=== PATIENT | male | born 1995 | race Caucasian/White ===

== ENCOUNTER 2016-11-10 15:59 | Emergency (ER) | payer SELFPAY ==
[2016-11-10 16:06] VITALS: BP 114/75
[2016-11-10] MEDS ORDERED: OXYCODONE-ACETAMINOPHEN 5-325 MG TABLET PO ONE (19:24)
[2016-11-10] MEDS ORDERED: DOXYCYCLINE HYCLATE 100 MG TABLET PO ONE (19:24)
--- NOTE | 2016-11-10 19:25 | ER Document Report ---
HPI - HPI Patient complains to provider of: finger lac Onset: This afternoon Onset/Duration: Sudden Quality of pain: Achy Pain Level: 4 Context: Patient states that he was throwing a piece of glass that was covered in particles and whenever he threw the glass it sliced open his finger. Patient with laceration to right third fingertip. Patient's tetanus immunization is currently up-to-date. Patient states that he was in salt water at the time. Associated Symptoms: Other - Laceration Exacerbated by: Movement Relieved by: Denies Similar symptoms previously: No Recently seen / treated by doctor: No - ROS ROS below otherwise negative: Yes Systems Reviewed and Negative: Yes All other systems reviewed and negative - CONSTITUTIONAL Constitutional: DENIES: Fever - MUSCULOSKELETAL Musculoskeletal: REPORTS: Extremity pain - DERM Skin Color: Normal Skin Problems: Laceration Past Medical History - General Information source: Patient - Social History Smoking Status: Current Every Day Smoker Occupation: [employer] Lives with: Family Family History: Reviewed & Not Pertinent - Medical History Medical History: Negative Renal/ Medical History: Denies: Hx Peritoneal Dialysis Surgical Hx: Negative - Immunizations Hx Diphtheria, Pertussis, Tetanus Vaccination: Yes Vertical Provider Document - CONSTITUTIONAL Agree With Documented VS: Yes Exam Limitations: No Limitations General Appearance: WD/WN, No Apparent Distress - INFECTION CONTROL TRAVEL OUTSIDE OF THE [place] IN LAST 30 DAYS: No - HEENT HEENT: Atraumatic, Normocephalic - NECK Neck: Normal Inspection - RESPIRATORY Respiratory: No Respiratory Distress O2 Sat by Pulse Oximetry: 100 - CARDIOVASCULAR Pulses: Normal: Radial - BACK Back: Normal Inspection - MUSCULOSKELETAL/EXTREMETIES Musculoskeletal/Extremeties: MAEW, Tender - r 3rd finger, No Edema - NEURO Level of Consciousness: Awake, Alert, Appropriate Motor/Sensory: No Motor Deficit, No Sensory Deficit - DERM Integumentary: Warm, Dry, Laceration - lac to distal tip of right 3rd finger tip Course - Vital Signs Vital signs: Temp Pulse Resp BP Pulse Ox 98.4 F 82 20 114/75 100 11/10/16 16:03 11/10/16 16:03 11/10/16 16:03 11/10/16 16:03 11/10/16 16:03 - Diagnostic Test Radiology reviewed: Image reviewed Procedures - Immobilization Right 3rd digit Pre-Proc Neuro Vasc Exam: Normal Immobilizer type: Finger splint (Static) Performed by: PCT Post-Proc Neuro Vasc Exam: Normal Alignment checked and good: Yes - Laceration/Wound Repair Right 3rd digit Wound length (cm): 1.2 Wound's Depth, Shape: Flap Anesthetic type: 1% Lidocaine - digital block Wound explored: Clean, No foreign body removed Wound Repaired With: Sutures Suture Size/Type: 5:0, Nylon Number of Sutures: 3 Layer Closure?: No Post-procedure wound care: Sterile dressing applied, Splint applied Post-procedure NV exam normal: Yes Complications: No Discharge - Discharge Clinical Impression: Finger laceration Qualifiers: Encounter type: initial encounter Finger: middle finger Damage to nail status: without damage Foreign body presence: without foreign body Laterality: right Qualified Code(s): S61.212A - Laceration without foreign body of right middle finger without damage to nail, initial encounter Condition: Stable Disposition: HOME, SELF-CARE Instructions: Laceration Care ([facility]), Prophylactic Antibiotic ([facility]), Soap Cleansing ([facility]), Oral Narcotic Medication ([facility]) Additional Instructions: Return immediately for any new or worsening symptoms Followup with your primary care provider, call tomorrow to make a followup appointment Suture removal in 8 days Prescriptions: Cephalexin Monohydrate [Keflex 500 mg Capsule] 500 mg PO Q6H 5 Days Doxycycline Hyclate 100 mg PO BID #14 capsule Oxycodone HCl/Acetaminophen [Percocet 5-325 mg Tablet] 1 tab PO ASDIR PRN #12 tablet PRN Reason: Referrals: [facility] [Provider Group] - Follow up as needed
[2016-11-10] MEDS ORDERED: LIDOCAINE 1% INJ-PF (10 MG/ML) 30 ML SDV INJ ONE (20:29)
--- NOTE | 2016-11-10 20:29 | RADIOLOGY REPORT (SQ) ---
EXAM DESCRIPTION: FINGER RIGHT COMPLETED DATE/TIME: 11/10/2016 8:00 pm REASON FOR STUDY: cut on barnacles, finger lac COMPARISON: None. NUMBER OF VIEWS: Three views. TECHNIQUE: AP, lateral, and oblique images acquired of the right third finger. LIMITATIONS: None. FINDINGS: MINERALIZATION: Normal. BONES: No acute fracture or dislocation. No worrisome bone lesions. SOFT TISSUES: No soft tissue swelling. No foreign body. OTHER: No other significant finding. IMPRESSION: NO RADIOGRAPHIC EVIDENCE OF ACUTE INJURY. COMMENT: SITE OF TRAUMA/COMPLAINT MARKED/STAMP COMPLETED: YES. TECHNICAL DOCUMENTATION: JOB ID: [id number] [employer]- All Rights Reserved
[2016-11-10] MEDS ORDERED: LIDOCAINE 1% INJ-PF (10 MG/ML) 30 ML SDV ONE (20:33)
[2016-11-10] MEDS ORDERED: CEPHALEXIN 500 MG CAPSULE PO ONE (21:04)
== END 2016-11-10 21:25 | disposition home or self-care (01) ==
LOC: ER 15:59
PROC: 0HQFXZZ Repair Right Hand Skin, External Approach (ICD-10-PCS; principal; 2016-11-10)
DX: S61.212A Laceration without foreign body of right middle finger without damage to nail, initial encounter (principal); W25.XXXA Contact with sharp glass, initial encounter; F17.200 Nicotine dependence, unspecified, uncomplicated
CPT/HCPCS: 99283

== ENCOUNTER 2016-11-16 15:47 | Emergency (ER) | payer SELFPAY ==
--- NOTE | 2016-11-16 17:02 | RADIOLOGY REPORT (SQ) ---
EXAM DESCRIPTION: CT CERVICAL SPINE WITHOUT COMPLETED DATE/TIME: 11/16/2016 4:50 pm REASON FOR STUDY: fall on face, heard neck crack COMPARISON: 02/11/2007. TECHNIQUE: Axial images acquired through the cervical spine without intravenous contrast. Images re viewed with lung, soft tissue and bone windows. Reconstructed coronal and sagittal MPR images review ed. Images stored on PACS. All CT scanners at this facility use dose modulation, iterative reconstruction, and/or weight based d osing when appropriate to reduce radiation dose to as low as reasonably achievable (ALARA). [facility]: Dose Right [facility]: CareDose [facility]: Dose Right [facility]: Teradose 4D [facility]: [employer] RADIATION DOSE: Up-to-date CT equipment and radiation dose reduction techniques were employed. CTDIv ol: 18.4 mGy. DLP: 504 mGy-cm. mGy. LIMITATIONS: None. FINDINGS: ALIGNMENT: Anatomic. MINERALIZATION: Normal. VERTEBRAL BODIES: No fractures or dislocation. DISCS: No significant disc disease. FACETS, LATERAL MASSES, POSTERIOR ELEMENTS: Anatomic variant incomplete posterior arch of C1. No fra ctures. No dislocation. No acute findings. HARDWARE: None in the spine. VISUALIZED RIBS: No fractures. LUNG APICES AND SOFT TISSUES: No significant or acute findings. OTHER: No other significant finding. IMPRESSION: NO ACUTE OR SIGNIFICANT FINDINGS IN THE CERVICAL SPINE. TECHNICAL DOCUMENTATION: JOB ID: [id number] Quality ID # [id number]: Final reports with documentation of one or more dose reduction techniques (e.g., Au tomated exposure control, adjustment of the mA and/or kV according to patient size, use of iterative reconstruction technique) 2010 [employer]- All Rights Reserved
--- NOTE | 2016-11-16 17:02 | RADIOLOGY REPORT (SQ) ---
EXAM DESCRIPTION: CT HEAD WITHOUT COMPLETED DATE/TIME: 11/16/2016 4:46 pm REASON FOR STUDY: fall on face, heard neck crack COMPARISON: 02/11/2007. TECHNIQUE: Axial images acquired through the brain without intravenous contrast. Images reviewed wi th bone, brain and subdural windows. Images stored on PACS. All CT scanners at this facility use dose modulation, iterative reconstruction, and/or weight based d osing when appropriate to reduce radiation dose to as low as reasonably achievable (ALARA). [facility]: Dose Right [facility]: CareDose [facility]: Dose Right [facility]: Teradose 4D [facility]: [employer] RADIATION DOSE: Up-to-date CT equipment and radiation dose reduction techniques were employed. CTDIv ol: 49.0 mGy. DLP: 783 mGy-cm. mGy. LIMITATIONS: None. FINDINGS: VENTRICLES: Normal size and contour. CEREBRUM: No masses. No hemorrhage. No midline shift. Normal pathak/white matter differentiation. N o evidence for acute infarction. CEREBELLUM: No masses. No hemorrhage. No alteration of density. No evidence for acute infarction. EXTRAAXIAL SPACES: No fluid collections. No masses. ORBITS AND GLOBE: No intra- or extraconal masses. Normal contour of globe without masses. CALVARIUM: No fracture. PARANASAL SINUSES: No fluid or mucosal thickening. SOFT TISSUES: No mass or hematoma. OTHER: No other significant finding. IMPRESSION: NORMAL BRAIN CT WITHOUT CONTRAST. TECHNICAL DOCUMENTATION: JOB ID: [id number] Quality ID # [id number]: Final reports with documentation of one or more dose reduction techniques (e.g., Au tomated exposure control, adjustment of the mA and/or kV according to patient size, use of iterative reconstruction technique) 2010 [employer]- All Rights Reserved
[2016-11-16] MEDS ORDERED: CYCLOBENZAPRINE HCL 10 MG TABLET PO ONE (17:09)
[2016-11-16] MEDS ORDERED: OXYCODONE-ACETAMINOPHEN 5-325 MG TABLET PO ONE (17:09)
[2016-11-16] MEDS ORDERED: DIPHENHYDRAMINE HCL 25 MG CAPSULE PO ONE (17:10)
--- NOTE | 2016-11-16 17:45 | ER Document Report ---
ED Fall - General Chief Complaint: Neck Problem Stated Complaint: FALL/NECK AND SHOULDER PAIN Time Seen by Provider: 11/16/16 16:22 Notes: Patient is a 21-year-old male presents emergency department after a fall [place]ampoline park. Patient states that he was doing a back flip when he landed on his face. Admits to LOC less than 15 minutes with associated dizziness, nausea. Patient also admits to left-sided neck pain. Patient states he heard a crack in his neck when he fell. Patient states that he was able to ambulate and drive to his mom's house and symptoms and care. Patient denies any urinary/ stool incontinence, saddle anesthesia. Denies any numbness or tingling in his upper or lower extremities. Patient able to ambulate without difficulty. TRAVEL OUTSIDE OF THE [place] IN LAST 30 DAYS: No - Related data Allergies/Adverse Reactions: hydrocodone Adverse Reaction (Verified 11/16/16 16:10) Past Medical History - Social History Smoking Status: Current Every Day Smoker Chew tobacco use (# tins/day): No Frequency of alcohol use: Occasional Drug Abuse: Marijuana Family History: Reviewed & Not Pertinent Patient has suicidal ideation: No Patient has homicidal ideation: No Renal/ Medical History: Denies: Hx Peritoneal Dialysis - Immunizations Hx Diphtheria, Pertussis, Tetanus Vaccination: Yes - 1 year ago Review of Systems - Review of Systems Constitutional: No symptoms reported Musculoskeletal: See HPI Neurological/Psychological: See HPI -: Yes All other systems reviewed and negative Physical Exam - Vital signs Vitals: Temp Pulse Resp BP Pulse Ox 98.5 F 97 18 118/70 98 11/16/16 16:08 11/16/16 16:08 11/16/16 16:08 11/16/16 16:08 11/16/16 16:08 - HEENT Head: Normocephalic. No: Abrasions, Romero's sign, Ecchymosis, Open wounds, Racoon's eyes, Tenderness Eyes: Normal Conjunctiva: Normal Cornea: Normal Extraocular movements intact: Yes Eyelashes: Normal Pupils: PERRL Ears: Normal. No: Pinna laceration, Pinna tenderness, Tragus laceration External canal: Normal. No: Blood in canal Tympanic membrane: Normal Sinus: Normal. No: Tenderness Nasal: Normal. No: Bloody discharge, Anirudh deformity, Ecchymosis, Epistaxis, Septal hematoma Mouth/Lips: Normal. No: Dental fracture Mucous membranes: Normal Pharynx: Normal. No: Blood in hypopharynx, Peritonsillar abscess, Retropharyngeal abscess, Potential airway comprom. Neck: Normal - Respiratory Respiratory status: No respiratory distress Chest status: Nontender Breath sounds: Normal Chest palpation: Normal - Cardiovascular Rhythm: Regular Heart sounds: Normal auscultation, S1 appreciated, S2 appreciated Murmur: No Pulses: Normal: Radial, Dorsalis pedis Normal capillary refill: Yes - Back Back: Tender - along c spine in c collar other brown thoracic and lumbar spine nontender. paraspinous muscle tenderness along cervial spine worse on the left along left trapezius. No: Deformity/step-off, CVA tenderness, Vertebra tenderness, Scars, Scoliosis, Wounds - Extremities General upper extremity: Normal inspection, Nontender, Normal color, Normal ROM , Normal strength, Normal temperature General lower extremity: Normal inspection, Nontender, Normal color, Normal ROM , Normal strength, Normal temperature, Normal weight bearing - Neurological Neuro grossly intact: Yes Cognition: Normal Orientation: AAOx4 Karlos Coma Scale Eye Opening: Spontaneous [place] Coma Scale Verbal: Oriented [place] Coma Scale Motor: Obeys Commands Karlos Coma Scale Total: 15 Speech: Normal Cranial nerves: Normal Cerebellar coordination: Normal Motor strength normal: LUE, RUE, LLE, RLE Additional motor exam normals: Equal tortilla maker Sensory: Normal - Skin Skin Temperature: Warm Skin Moisture: Dry Skin Color: Normal Skin Turgor: Elastic Skin irregularity: Laceration - above right eyebrow involving dermis with dried blood Course - Re-evaluation Re-evalutation: 11/16/16 21:15 Patient is a 20-year-old male who is hemodynamic stable, no acute distress without any evidence of acute hemorrhage, skull fracture, cervical spinous fracture. C-spine cleared the bedside. Patient medicated with improvement in his pain. Patient able to ambulate without any difficulty. Patient stable for discharge home. Patient educated on signs and symptoms to return to emergency department. - Vital Signs Vital signs: Temp Pulse Resp BP Pulse Ox 97.4 F 68 16 115/67 99 11/16/16 18:24 11/16/16 18:24 11/16/16 18:24 11/16/16 18:24 11/16/16 18:24 - Diagnostic Test Radiology reviewed: Image reviewed, Reports reviewed Discharge - Discharge Clinical Impression: Cervical strain Qualifiers: Encounter type: initial encounter Qualified Code(s): S16.1XXA - Strain of muscle, fascia and tendon at neck level, initial encounter Condition: Good Disposition: HOME, SELF-CARE Additional Instructions: HEAD INJURY PRECAUTIONS: At this point, there is no evidence that your head injury is serious. Observation is necessary, however. Take only clear liquids for the first few hours, unless told otherwise by the doctor. If no pain medication was prescribed, you may take acetaminophen according to the directions on the bottle. Do not take any medication that may alter your level of alertness (unless you've discussed it with the doctor first) . Limit activity for the first 24 hours. Bed rest is best. During the first 24 hours, check to see approximately every two to three hours that the patient is easily arousable, responds normally, and can perform common tasks such as walking without difficulty. Contact your doctor or go to the hospital if any of the following things occur: Persistent vomiting, difficulty in arousing the patient, worsening or continued headache, or failure to improve as expected. Head injuries can cause symptoms that persist for a few days or even a few weeks. NECK INJURY (CERVICAL STRAIN): You have a neck strain. This is an injury to the muscles and ligaments in the neck. There is no evidence of a fracture of the neck bones. Also, no injury to the spinal cord or nerve roots was detected. Usually, stiffness and pain INCREASE for the first 24-48 hours after the injury. The pain will gradually resolve and the neck will become more mobile. Most patients are back at work or school within a few days. Typically, complete healing takes about two or three weeks. The usual initial treatment is rest and cold packs. A neck collar may be placed to keep the muscles of the neck at rest. Antiinflammatory and muscle relaxing medication are often used to reduce the spasm and irritation. You should call the doctor, or go to the hospital, if you develop numbness or weakness in any extremity, problems with your bladder or bowel, or pain radiating down the arms. MUSCLE STRAIN: You have strained a muscle -- torn the fibers within the muscle. This often occurs with strenuous exertion, or during an injury that suddenly stretches the muscle. The seriousness of a strain varies. Some strains heal within days, others cause problems for months. X-rays cannot show a muscle strain. X-rays are taken only if symptoms suggest that a fracture could be present. The usual treatment of a muscle strain is rest and ice packs. Sometimes, a sling, splint, or crutches may be necessary to rest the muscle. The muscle can be used again once pain subsides. Severe strains require a special exercise and stretching program to prevent permanent stiffness and disability. Your doctor will advise you if this will be necessary. Call the doctor immediately if pain or swelling becomes severe, or if numbness or discoloration develop. ICE PACKS: Apply ice packs frequently against the painful area. Many different schedules are recommended, such as "20 minutes on, 20 minutes off" or "one hour ice, two hours rest." If you need to work, you may need to go longer between ice treatments. You should plan to have the area ice packed AT LEAST one fourth of the time. The ice should be applied over the wrap, tape, or splint, or over a layer of cloth -- not directly against the skin. Some ice bags have a built-in cloth and can be put directly on the skin. WARM PACKS: After approximately two days, apply gentle heat (such as a heating pad or hot water bottle) for about 20 to 30 minutes about every two hours -- at least four times daily. Warmth and elevation will help you make a more rapid recovery , and will ease the pain considerably. Do not use HOT heat, and never apply heat for longer than 30 minutes. The continuous heat can invisibly damage skin and muscles -- even when no burn is seen on the surface. Damaged muscles can make you MORE sore. MUSCLE RELAXERS: Muscle relaxing medications are usually prescribed for acute muscle spasm or injury to the neck and back. They are often combined with antiinflammatory pain medication for increased relief. You may stop the muscle relaxer when the pain and stiffness have improved. Start the medication again if spasms recur. Muscle relaxers may cause drowsiness, especially with the first dose. Do not operate machinery or drive while under the effects of the medication. Most muscle relaxers last up to 24 hours. Do not combine the medication with alcohol. FOLLOW-UP CARE: If you have been referred to a physician for follow-up care, call the physician s office for an appointment as you were instructed or within the next two days. If you experience worsening or a significant change in your symptoms, notify the physician immediately or return to the Emergency Department at any time for re-evaluation. Prescriptions: Cyclobenzaprine HCl [Flexeril 10 mg Tablet] 10 mg PO TIDP PRN #15 tab PRN Reason: Ibuprofen [Motrin 800 mg Tablet] 800 mg PO Q8H PRN #30 tab PRN Reason:
[2016-11-16 18:25] VITALS: BP 115/67
== END 2016-11-16 18:24 | disposition home or self-care (01) ==
LOC: ER 15:47
DX: S16.1XXA Strain of muscle, fascia and tendon at neck level, initial encounter (principal); S01.81XA Laceration without foreign body of other part of head, initial encounter; W17.89XA Other fall from one level to another, initial encounter; Y93.44 Activity, trampolining; Y92.39 Other specified sports and athletic area as the place of occurrence of the external cause; R55 Syncope and collapse; R42 Dizziness and giddiness; R11.0 Nausea; M54.2 Cervicalgia; F17.200 Nicotine dependence, unspecified, uncomplicated
CPT/HCPCS: 99284; 70450; 72125; L0120

== ENCOUNTER 2018-03-18 19:32 | Emergency (ER) | payer SELFPAY ==
[2018-03-18 19:43] VITALS: BP 121/72
[2018-03-18] MEDS ORDERED: IBUPROFEN 600 MG TABLET PO ONE (21:40)
[2018-03-18] MEDS ORDERED: ACETAMINOPHEN 325 MG TABLET PO ONE (21:40)
--- NOTE | 2018-03-18 21:44 | ER Document Report ---
ED General - General Chief Complaint: Arm Pain Stated Complaint: ARM PAIN Time Seen by Provider: 03/18/18 21:29 Notes: Patient is a 22-year-old male who presents to the emergency department with left forearm pain. 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 He states he has been having this pain for the past week and a half, but was unable to come to have his arm checked. He does have some some numbness to the area. When he moves his arm he feels "popping" sensation. When he does not move his arm he is not in pain. TRAVEL OUTSIDE OF THE [place] IN LAST 30 DAYS: No - Related Data Allergies/Adverse Reactions: hydrocodone Adverse Reaction (Verified 11/16/16 16:10) Past Medical History - General Information source: Patient - Social History Smoking Status: Current Every Day Smoker Chew tobacco use (# tins/day): No Frequency of alcohol use: None Drug Abuse: None Family History: Reviewed & Not Pertinent Patient has suicidal ideation: No Patient has homicidal ideation: No Renal/ Medical History: Denies: Hx Peritoneal Dialysis Past Surgical History: Reports: Hx Tonsillectomy - Immunizations Hx Diphtheria, Pertussis, Tetanus Vaccination: Yes Review of Systems - Review of Systems Notes: REVIEW OF SYSTEMS: CONSTITUTIONAL : Denies recent illness. Denies recent unintentional weight loss. Denies fever, chills, or sweats. EENT: Denies eye, ear, throat, or mouth pain, discharge, or symptoms. Denies nasal or sinus congestion. CARDIOVASCULAR: Denies chest pain. RESPIRATORY: Denies shortness of breath, cough, congestion, difficulty breathing , or wheezing. GASTROINTESTINAL: Denies nausea, vomiting, and diarrhea. Denies abdominal pain. Denies constipation. GENITOURINARY: Denies difficulty urinating, burning, blood in urine, urgency or frequency. MUSCULOSKELETAL: See HPI SKIN: Denies rash, itchiness, or lesions HEMATOLOGIC : Denies easy bruising or bleeding. LYMPHATIC: Denies swollen, painful, enlarged glands. NEUROLOGICAL: Denies no numbness or tingling denies weakness. Denies headache. Denies altered mental status. Denies alteration in speech. PSYCHIATRIC: Denies stress, anxiety, alteration in sleep patterns, or depression. All other systems reviewed and negative. Physical Exam - Vital signs Vitals: Temp Pulse Resp BP Pulse Ox 97.7 F 88 16 121/72 100 03/18/18 19:41 03/18/18 19:41 03/18/18 19:41 03/18/18 19:41 03/18/18 19:41 - Notes Notes: PHYSICAL EXAMINATION: GENERAL: Appears well, healthy, well-nourished, no acute distress. HEAD: Normocephalic, atraumatic. EYES: PERRL, conjunctiva normal, all extraocular movements intact, sclera nonicteric ENT: Moist mucous membranes. NECK: Supple, no noticeable swelling, redness, rash. Normal range of motion. LUNGS: Equal breath sounds bilaterally and clear to auscultation. No wheezes rales or rhonchi. CARDIOVASCULAR: S1-S2, regular rate, regular rhythm. Radial pulses 2+, normal. ABDOMEN: Normoactive bowel sounds. Soft, nontender, no guarding, no rebound tenderness, and no masses palpated. EXTREMITIES: Normal strength and range of motion, no pitting or edema. No cyanosis. NEUROLOGICAL: Moves all extremities upon command. Strength 5/5 in all extremities. Mild crepitus noted to radius area when patient hyperextended his wrist. PSYCH: Normal mood, normal affect. SKIN: Warm, dry. No rash, lesions, ulcerations noted. Normal skin turgor. Course - Re-evaluation Re-evalutation: Patient's exam is most consistent with tendinitis. I do not suspect patient has a fracture or ruptured tendon. He will be sent home with a cockup splint with Motrin and Tylenol for pain control. Return precautions were given, discharge instructions were given, and patient verbalized understanding. He is stable for discharge. - Vital Signs Vital signs: Temp Pulse Resp BP Pulse Ox 97.7 F 88 16 121/72 100 03/18/18 19:41 03/18/18 19:41 03/18/18 19:41 03/18/18 19:41 03/18/18 19:41 Procedures - Immobilization Left Wrist Pre-Proc Neuro Vasc Exam: Normal Immobilizer type: Cock-up Performed by: RN Post-Proc Neuro Vasc Exam: Unchanged from pre-exam Alignment checked and good: Yes Discharge - Discharge Clinical Impression: Left arm pain Condition: Stable Disposition: HOME, SELF-CARE Additional Instructions: You have been seen in the emergency department for left arm pain. The most likely cause of your left arm pain is something called tendinitis. Please rest the area as much as he can. You have been provided with a splint to help limit movement. You can take ibuprofen 600 mg and Tylenol 1000 mg every 6 hours as needed for the pain. Take those medications together and make sure you eat when you take them. Please follow-up with your primary care provider in regards to this issue. If you are unable to move your arm in any point, develop a fever greater than 100.4 F, or have any symptoms that are worrisome to you please return to the emergency department. Forms: Special Work Note
== END 2018-03-18 22:00 | disposition home or self-care (01) ==
LOC: ER 19:32
DX: M79.632 Pain in left forearm (principal); X50.0XXA Overexertion from strenuous movement or load, initial encounter; Y99.0 Civilian activity done for income or pay; R20.0 Anesthesia of skin; F17.200 Nicotine dependence, unspecified, uncomplicated
CPT/HCPCS: 99283; L3908

== ENCOUNTER 2018-06-03 19:08 | Emergency (ER) | payer SELFPAY ==
[2018-06-03 19:19] VITALS: BP 123/69
[2018-06-03] MEDS ORDERED: ACETAMINOPHEN 325 MG TABLET PO ONE (20:08)
[2018-06-03] MEDS ORDERED: IPRATROPIUM/ALBUTEROL 0.5-2.5 MG/3 ML AMPUL NEB ONE (20:10)
--- NOTE | 2018-06-03 20:10 | ER Document Report ---
HPI - HPI Time Seen by Provider: 06/03/18 20:02 Pain Level: 4 Notes: Patient is a 23-year-old male who presents to the ED complaining of nasal congestion/discharge, dry nonproductive cough, fever, body ache 4d. Patient states that he is still eating and drinking without difficulties, but does have a decreased p.o. intake. He is still urinating normally having normal bowel movements. Patient has been using some [id number] meds for symptoms. He denies any significant past medical history including cardiopulmonary history and immunocompromised conditions. Patient denies any IV drug use. Denies any current headache, neck pain, sore throat, chest pain, palpitations, syncope, shortness of breath, wheeze, dyspnea, abdominal pain, nausea/vomiting/diarrhea, urinary retention, dysuria, hematuria, or rash. - ROS Systems Reviewed and Negative: Yes All other systems reviewed and negative Past Medical History - Social History Smoking Status: Smoker,Current Status Unk Family History: Reviewed & Not Pertinent Renal/ Medical History: Denies: Hx Peritoneal Dialysis Past Surgical History: Reports: Hx Tonsillectomy - Immunizations Hx Diphtheria, Pertussis, Tetanus Vaccination: Yes Vertical Provider Document - CONSTITUTIONAL Agree With Documented VS: Yes Notes: PHYSICAL EXAMINATION: GENERAL: Well-appearing, well-nourished and in no acute distress. A&Ox4. Answers questions appropriately. Moves comfortably w/o notable distress HEAD: Atraumatic, normocephalic. EYES: Pupils equal round and reactive to light, extraocular movements intact, sclera anicteric, conjunctiva are normal. ENT: EAC clear b/l. TM's intact b/l without erythema, fluid, or perforation. Nares patent and with clear discharge. oropharynx no erythema without exudates. No tonsilar hypertrophy without erythema or exudate. No palatine shift. Uvula midline. No tongue protrusion. No drooling, hoarseness, or airway compromise. Moist mucous membranes. No sinus tenderness. NECK: Normal range of motion, supple without lymphadenopathy. No rigidity/meningismus. LUNGS: Breath sounds clear to auscultation bilaterally and equal. No wheezes rales or rhonchi. No retractions HEART: Regular rate and rhythm without murmurs, rubs, gallops. ABDOMEN: Soft, nontender, nondistended abdomen. No guarding, no rebound. Normal bowel sounds present. No CVA tenderness bilaterally. NEUROLOGICAL: Normal speech, normal gait. PSYCH: Normal mood, normal affect. SKIN: Warm, Dry, normal turgor, no rashes or lesions noted. - INFECTION CONTROL TRAVEL OUTSIDE OF THE [place] IN LAST 30 DAYS: No Course - Re-evaluation Re-evalutation: 06/03/18 20:42 Patient is an afebrile, well-hydrated, 23-year-old male who presents to the ED with acute URI, suspect influenza. Vitals are acceptable. PE is otherwise unremarkable. CXR unremarkable. No other labs or imaging warranted at this time based on H&P. Patient has no significant cardiopulmonary or immunocompromised medical conditions. Patient's lungs are clear to auscultation bilaterally without tachycardia, hypoxia, or tachypnea. Patient is tolerating p.o. without any difficulties. Pt beyond treatment window with tamiflu. Low suspicion for any meningitis, sepsis, peritonsillar/pharyngeal abscess, resp iratory compromise, severe dehydration, or other emergent systemic condition at this time. Patient is aware this condition can change from initial presentation and he needs to monitor symptoms closely. Conservative measures otherwise for symptoms. Recheck with your PCM in 3-5 days. Return to the ED with any worsening/concerning symptoms otherwise as reviewed in discharge. Patient is in agreement. - Vital Signs Vital signs: Temp Pulse Resp BP Pulse Ox 99.7 F 117 H 22 H 123/69 99 06/03/18 19:17 06/03/18 19:17 06/03/18 19:17 06/03/18 19:17 06/03/18 19:17 Discharge - Discharge Clinical Impression: Acute URI Condition: Stable Disposition: HOME, SELF-CARE Instructions: Upper Respiratory Illness ([facility]) Additional Instructions: Maintain adequate fluid intake tylenol/ibuprofen as needed alternating every 3 hours for fever/body ache over the counter cold medication as needed for symptoms Humidified air may help Wash your hands regularly Wear a mask when coughing F/u: with your PCM in 3-5 days for a recheck Return to the ED with any fever, worsening pain, chest pain, palpitations, syncope, worsening MORA, neck pain/stiffness, shortness of breath, wheezing, drooling, trouble swallowing/breathing, abdominal pain, n/v/d, rash, or worsening/concerning symptoms otherwise. Prescriptions: Benzonatate [Tessalon Perle 100 mg Capsule] 100 mg PO Q8HP PRN #15 cap PRN Reason: Albuterol Sulfate [Proair HFA Inhalation Aerosol 8.5 gm MDI] 2 puff IH Q4H PRN #1 mdi PRN Reason: Forms: Return to Work Referrals: [facility] [Provider Group] - Follow up as needed [facility] [Provider Group] - Follow up as needed
--- NOTE | 2018-06-03 20:35 | RADIOLOGY REPORT (SQ) ---
XR CHEST 2 VIEWS HISTORY: cough, fever. COMPARISON: None. FINDINGS: The heart size is normal. The lungs are clear. No pleural effusions or pneumothorax is seen. No acute bony findings. IMPRESSION: No evidence of acute cardiopulmonary disease.
== END 2018-06-03 20:56 | disposition home or self-care (01) ==
LOC: ER 19:08
DX: J06.9 Acute upper respiratory infection, unspecified (principal); R09.81 Nasal congestion; R09.89 Other specified symptoms and signs involving the circulatory and respiratory systems; R05 Cough; R50.9 Fever, unspecified; M79.10 Myalgia, unspecified site; R63.0 Anorexia; F17.200 Nicotine dependence, unspecified, uncomplicated
CPT/HCPCS: 94640; 99283; 71046; J7620

== ENCOUNTER 2019-02-17 23:33 | Emergency (ER) | payer MEDICAID ==
[2019-02-18] MEDS ORDERED: IBUPROFEN 600 MG TABLET PO PRN (00:02)
[2019-02-18] MEDS ORDERED: ACETAMINOPHEN 325 MG TABLET PO ONE (00:05)
[2019-02-18] MEDS ORDERED: IBUPROFEN 600 MG TABLET PO ONE (00:05)
[2019-02-18] MEDS ORDERED: RINGERS LACTATED IV ONE (00:05)
[2019-02-18 00:34] LABS: ABSOLUTE EOSINOPHILS # (AUTO) 0.2 10^3/uL (0.0-0.6); ABSOLUTE LYMPHOCYTES (AUTO) 2.7 10^3/uL (0.5-4.7); ABSOLUTE MONOCYTES (AUTO) 0.5 10^3/uL (0.1-1.4); ABSOLUTE NEUT (AUTO) 5.5 10^3/uL (1.7-8.2); BASOPHILS % (AUTO) 0.5 % (0-2); EOSINOPHILS % (AUTO) 2.1 % (0-6); HEMATOCRIT 36.7 % (37.9-51.0); HEMOGLOBIN 12.3 g/dL (13.5-17.0); LYMPHOCYTES % (AUTO) 30.5 % (13-45); MEAN CORPUSCULAR HEMOGLOBIN 28.5 pg (27.0-33.4); MEAN CORPUSCULAR HGB CONC 33.6 g/dL (32.0-36.0); MEAN CORPUSCULAR VOLUME 85 fl (80-97); MONOCYTES % (AUTO) 5.6 % (3-13); PLATELET COUNT 251 10^3/uL (150-450); RED BLOOD COUNT 4.32 10^6/uL (4.35-5.55); RED CELL DISTRIBUTION WIDTH 14.1 % (11.5-14.0); SEGMENTED NEUTROPHILS % (AUTO) 61.3 % (42-78); TOTAL CELLS COUNTED % (AUTO) 100 %
[2019-02-18 00:35] LABS: VENOUS BLOOD BASE EXCESS 0.4 mmol/L; VENOUS BLOOD HCO3 24.9 mmol/L (20-32); VENOUS BLOOD PCO2 39.8 mmHg (35-63); VENOUS BLOOD PH 7.41 (7.30-7.42)
[2019-02-18 00:40] LABS: PROTHROMBIN TIME 13.2 SEC (11.4-15.4)
[2019-02-18 01:00] LABS: ALBUMIN 3.8 g/dL (3.5-5.0); ALKALINE PHOSPHATASE 107 U/L (38-126); ANION GAP 11 (5-19); ASPARTATE AMINO TRANSFERASE 29 U/L (17-59); BILIRUBIN,DIRECT 0.3 mg/dL (0.0-0.4); BILIRUBIN,TOTAL 0.4 mg/dL (0.2-1.3); BLOOD UREA NITROGEN 12 mg/dL (7-20); CALCIUM 9.2 mg/dL (8.4-10.2); CARBON DIOXIDE 25 mmol/L (22-30); CHLORIDE 104 mmol/L (98-107); GLUCOSE 105 mg/dL (75-110); POTASSIUM 4.1 mmol/L (3.6-5.0)
--- NOTE | 2019-02-18 01:22 | ER Document Report ---
ED General - General Chief Complaint: Fever Stated Complaint: FEVER,NAUSEA,HEADACHE Time Seen by Provider: 02/18/19 01:06 Primary Care Provider: WANDY VIZCARRA PA [Primary Care Provider] - Follow up as needed TRAVEL OUTSIDE OF THE U.[place]. IN LAST 30 DAYS: No - HPI Notes: Patient is a 23-year-old male presents emergency department for evaluation of cough, fever, difficulty breathing. He states symptoms have been present for about 10 days. He states he was feeling fever, congestion, and cough, started about 10 days ago. He states his symptoms got better then got worse again. His fevers were for a few days then returned after 3 or 4 days. He denies any pain of any sort, other than generalized body aches. He has had no vomiting. Thus far fevers been responsive to Tylenol and ibuprofen. After some time, patient's family came out to talk to me. They state that he told him he has a history of testicular cancer. He was being treated in [place]. I confronted the patient about this. He states he was diagnosed with testicular cancer, was on chemotherapy. He was told it was "almost gone" and then stopped receiving any sort of treatment. He states he has noted testicular scrotal pain at this time. - Related Data Allergies/Adverse Reactions: hydrocodone Adverse Reaction (Verified 11/16/16 16:10) Home Medications: Suboxone Past Medical History - General Information source: Patient - Social History Smoking Status: Current Every Day Smoker Chew tobacco use (# tins/day): No Frequency of alcohol use: None Drug Abuse: Heroin - Last injected heroin 1 to 2 months ago Family History: Reviewed & Not Pertinent Patient has suicidal ideation: No Patient has homicidal ideation: No Renal/ Medical History: Denies: Hx Peritoneal Dialysis Malignancy Medical History: Reports Hx Testicular Cancer Past Surgical History: Reports: Hx Tonsillectomy - Immunizations Hx Diphtheria, Pertussis, Tetanus Vaccination: Yes Review of Systems - Review of Systems Constitutional: See HPI EENT: See HPI Cardiovascular: No symptoms reported Respiratory: See HPI Gastrointestinal: No symptoms reported Genitourinary: No symptoms reported Musculoskeletal: No symptoms reported Skin: No symptoms reported Neurological/Psychological: No symptoms reported Physical Exam - Vital signs Vitals: Temp Pulse Resp BP Pulse Ox 101.3 F H 129 H 23 H 90/75 L 97 02/18/19 00:00 02/18/19 00:00 02/18/19 00:00 02/18/19 00:00 02/18/19 00:00 - Notes Notes: This is a 23-year-old male who appears stated age, no acute distress. He is sitting upright in the bed, cooperative with examiner. Vital signs reviewed, please refer to chart. Head is normocephalic, atraumatic. Pupils equal round, reactive to light. Mucosa is moist. Pharynx is without erythema or exudate. Neck is supple without meningismus. Heart is regular rate and rhythm. Lungs reveal harsh breath sounds but no wheezes, rales, rhonchi. Abdomen is soft, nontender, normoactive bowel sounds throughout. Extremities without cyanosis, clubbing. Posterior calves are nontender. Peripheral pulses are equal. Skin is warm and dry. Patient is awake, alert, neurological exam is nonfocal. Course - Re-evaluation Re-evalutation: 02/18/19 03:28 Presents emergency department for evaluation. He has had intermittent fevers for over a week. It seems as if his symptoms improved and then worsened again. Laboratory investigations were obtained, patient was given IV fluids, antipyretics. Because of his history of IV drug abuse and newly reported history of testicular cancer, CT angiogram of the chest was ordered as well. CTA findings are most consistent with left lower lobe and lingular pneumonia. Patient is given Levaquin. He had no vomiting. He is feeling significantly improved. He is not hypoxic. His heart rate is in the 80s. I will send him home with a prescription for Levaquin and close follow-up. She is to return to the ED with worsening or new concerning symptoms. He is urged in no uncertain terms to please follow-up with oncology in [place] in regards to his testicular cancer. - Vital Signs Vital signs: Temp Pulse Resp BP Pulse Ox 98.8 F 129 H 14 103/55 L 98 02/18/19 02:53 02/18/19 00:00 02/18/19 02:53 02/18/19 02:53 02/18/19 02:53 - Laboratory Result Diagrams: 02/18/19 00:15 02/18/19 00:15 Laboratory results interpreted by me: 02/18/19 00:15 RBC 4.32 L Hgb 12.3 L Hct 36.7 L RDW 14.1 H - Diagnostic Test Radiology reviewed: Image reviewed, Reports reviewed Radiology results interpreted by me: 02/18/19 03:27 Chest X-Ray 02/18/19 00:05 IMPRESSION: Negative chest copyright 2011 [employer]- All Rights Reserved Chest/Abdomen CTA 02/18/19 01:37 IMPRESSION: No aortic dissection or aneurysm. No pulmonary embolus. Probable left lower lobe and lingular pneumonia. - EKG Interpretation by Me Additional EKG results interpreted by me: 02/18/19 03:27 Sinus tachycardia with a rate of 107 bpm. Normal axis and intervals, no acute ST changes concerning for ischemia or infarction Discharge - Discharge Clinical Impression: Pneumonia Qualifiers: Pneumonia type: due to unspecified organism Laterality: left Lung location: lower lobe of lung Qualified Code(s): J18.1 - Lobar pneumonia, unspecified organism Condition: Stable Disposition: HOME, SELF-CARE Instructions: Acetaminophen Additional Instructions: Please take all the Levaquin as prescribed until it is gone. Albuterol inhaler as needed for shortness of breath. Follow-up with primary care this week. Please follow-up with oncology in [place] as discussed. Return to the emergency department with worsening or new concerning symptoms. Referrals: WANDY VIZCARRA PA [Primary Care Provider] - Follow up as needed
[2019-02-18 02:19] LABS: A TYPE INFLUENZA AG NEGATIVE (NEGATIVE); B INFLUENZA AG NEGATIVE (NEGATIVE)
--- NOTE | 2019-02-18 02:34 | RADIOLOGY REPORT (SQ) ---
CLINICAL HISTORY: fever, dyspnea, h/o IVDA and testicular cancer COMPARISON: None. TECHNIQUE: CT CHEST ANGIOGRAPHY WITHOUT THEN WITH IV CONTRAST on 02/18/2019 1:37 AM CDT. MIPS reconstructions were generated. This exam was performed according to our departmental dose-optimization program, which includes automated exposure control, adjustment of the mA and/or kV according to patient size and/or use of iterative reconstruction technique. MIP images were generated. FINDINGS: Thoracic aorta is normal in course and caliber without aneurysm or dissection. Pulmonary arteries are adequately opacified without acute or chronic filling defects. The heart is normal in size. There is no pericardial effusion. Intrathoracic lymph nodes are not enlarged. There is no pleural effusion, pleural thickening or pneumothorax. Central airways are patent. There are minimal groundglass opacities in the inferior lingula as well as the posterior left lower lobe. There are no acute abnormalities within the limited images of the upper abdomen. There are no acute osseous findings. No suspicious bony lesions. IMPRESSION: No aortic dissection or aneurysm. No pulmonary embolus. Probable left lower lobe and lingular pneumonia.
--- NOTE | 2019-02-18 02:35 | RADIOLOGY REPORT (SQ) ---
EXAM DESCRIPTION: XR CHEST 2 VIEWS COMPLETED DATE/TME: 02/18/2019 00:05 CLINICAL HISTORY: 23 years, Male, fever COMPARISON: 06/03/2018 chest NUMBER OF VIEWS: 2 TECHNIQUE: 2 view chest LIMITATIONS: None. FINDINGS: Heart size normal. Lungs clear. No pneumothorax IMPRESSION: Negative chest copyright 2010 [employer]- All Rights Reserved
[2019-02-18] MEDS ORDERED: LEVOFLOXACIN 750 MG TABLET PO ONE (03:25)
[2019-02-18] MEDS ORDERED: ALBUTEROL SULFATE HFA (90 MCG/PUFF) 8 GM MDI (1 MDI/ER DISP) IH PRN (03:25)
[2019-02-18 03:51] VITALS: BP 106/70
--- NOTE | 2019-02-18 07:40 | EKG REPORT ---
SEVERITY:- OTHERWISE NORMAL ECG - SINUS TACHYCARDIA : Confirmed by: Jonathan Elias MD 18-Feb-2019 07:40:00
== END 2019-02-18 04:50 | disposition home or self-care (01) ==
LOC: ER 23:33
DX: J18.1 Lobar pneumonia, unspecified organism (principal); R05 Cough; R50.9 Fever, unspecified; R06.00 Dyspnea, unspecified; R52 Pain, unspecified; N50.82 Scrotal pain; F11.10 Opioid abuse, uncomplicated; R00.0 Tachycardia, unspecified; F17.200 Nicotine dependence, unspecified, uncomplicated; Z92.21 Personal history of antineoplastic chemotherapy
CPT/HCPCS: 93005; 99284; 36415; 87040; 85025; 85610; 80053; 82803; 83605; 87804; 71046; 71275; 93010; J3490 ×4; J7120; 87077; 87150

== ENCOUNTER 2019-02-20 15:18 | Inpatient (IN) | payer MEDICAID ==
--- NOTE | 2019-02-20 15:36 | ER Document Report ---
ED Medical Screen (RME) - General Chief Complaint: Abnormal Lab Results Stated Complaint: ABNORMAL LABS Time Seen by Provider: 02/20/19 15:33 Primary Care Provider: WANDY VIZCARRA PA [Primary Care Provider] - Follow up as needed Mode of Arrival: Ambulatory Information source: Patient Notes: 23-year-old male presents to ED for follow-up from positive blood cultures. He had one bottle that was positive for yeast. He also tested positive hepatitis C. Will test for HIV at this time as well as basic lab work. He states he has been sick tired and weak. He states the last time he is used any drugs IV was about a month ago. He is on Suboxone through Dr. Ponce. I have greeted and performed a rapid initial assessment of this patient. A comprehensive ED assessment and evaluation of the patient, analysis of test results and completion of medical decision making process will be conducted by an additional ED providers. TRAVEL OUTSIDE OF THE [place] IN LAST 30 DAYS: No - Related Data Allergies/Adverse Reactions: hydrocodone Adverse Reaction (Verified 02/20/19 15:29) Past Medical History Renal/ Medical History: Denies: Hx Peritoneal Dialysis Malignancy Medical History: Reports Hx Testicular Cancer Past Surgical History: Reports: Hx Tonsillectomy - Immunizations Hx Diphtheria, Pertussis, Tetanus Vaccination: Yes Physical Exam - Vital signs Vitals: Temp Pulse Resp BP Pulse Ox 97.9 F 98 18 122/67 100 02/20/19 15:22 02/20/19 15:22 02/20/19 15:22 02/20/19 15:22 02/20/19 15:22 Course - Vital Signs Vital signs: Temp Pulse Resp BP Pulse Ox 97.9 F 98 18 122/67 100 02/20/19 15:22 02/20/19 15:22 02/20/19 15:22 02/20/19 15:22 02/20/19 15:22 Doctor's Discharge - Discharge Referrals: WANDY VIZCARRA PA [Primary Care Provider] - Follow up as needed
[2019-02-20 16:52] LABS: ABSOLUTE EOSINOPHILS # (AUTO) 0.2 10^3/uL (0.0-0.6); ABSOLUTE MONOCYTES (AUTO) 0.3 10^3/uL (0.1-1.4); ABSOLUTE NEUT (AUTO) 3.6 10^3/uL (1.7-8.2); BASOPHILS % (AUTO) 0.3 % (0-2); EOSINOPHILS % (AUTO) 2.5 % (0-6); HEMATOCRIT 39.9 % (37.9-51.0); HEMOGLOBIN 13.6 g/dL (13.5-17.0); LYMPHOCYTES % (AUTO) 42.3 % (13-45); MEAN CORPUSCULAR HEMOGLOBIN 28.9 pg (27.0-33.4); MEAN CORPUSCULAR HGB CONC 34.2 g/dL (32.0-36.0); MEAN CORPUSCULAR VOLUME 85 fl (80-97); MONOCYTES % (AUTO) 3.9 % (3-13); PLATELET COUNT 331 10^3/uL (150-450); RED BLOOD COUNT 4.71 10^6/uL (4.35-5.55); RED CELL DISTRIBUTION WIDTH 14.2 % (11.5-14.0); TOTAL CELLS COUNTED % (AUTO) 100 %
[2019-02-20 17:31] LABS: ALBUMIN 4.2 g/dL (3.5-5.0); ALKALINE PHOSPHATASE 113 U/L (38-126); ANION GAP 11 (5-19); ASPARTATE AMINO TRANSFERASE 46 U/L (17-59); BILIRUBIN,DIRECT 0.3 mg/dL (0.0-0.4); BILIRUBIN,TOTAL 0.4 mg/dL (0.2-1.3); BLOOD UREA NITROGEN 9 mg/dL (7-20); CARBON DIOXIDE 30 mmol/L (22-30); CHLORIDE 102 mmol/L (98-107); GLUCOSE 107 mg/dL (75-110); POTASSIUM 4.2 mmol/L (3.6-5.0); TOTAL PROTEIN 7.7 g/dL (6.3-8.2)
[2019-02-20 17:58] LABS: APPEARANCE,URINE CLEAR; BILIRUBIN,URINE NEGATIVE (NEGATIVE); COLOR,URINE YELLOW; GLUCOSE, URINE NEGATIVE (NEGATIVE); KETONES,URINE NEGATIVE (NEGATIVE); PROTEIN,URINE NEGATIVE (NEGATIVE); URINE SPECIFIC GRAVITY 1.016
[2019-02-20 18:17] LABS: URINE AMPHETAMINES SCREEN NEGATIVE; URINE BARBITURATES SCREEN NEGATIVE; URINE BENZODIAZEPINES SCREEN NEGATIVE; URINE COCAINE SCREEN NEGATIVE; URINE MARIJUANA (THC) SCREEN NEGATIVE; URINE METHADONE SCREEN NEGATIVE; URINE PHENCYCLIDINE SCREEN NEGATIVE
[2019-02-20] MEDS ORDERED: FLUCONAZOLE 400 MG/NS RTU 400 MG/200 ML RTUPB IV ONE ×2 (19:58)
[2019-02-20] MEDS ORDERED: MICAFUNGIN SODIUM INJ/PF 100 MG VIAL IV ONE (23:30)
--- NOTE | 2019-02-21 01:26 | ER Document Report ---
Entered by EDWIN GONZALEZ SCRIBE 02/20/19 2236 Acting as scribe for:ANALIA MCGREGOR DO ED General - General Chief Complaint: Abnormal Lab Results Stated Complaint: ABNORMAL LABS Time Seen by Provider: 02/20/19 15:33 Mode of Arrival: Ambulatory Information source: Patient, Relative, [facility] Records Cannot obtain history due to: Uncooperative Notes: 23-year-old male with a history of intravenous drug abuse presents today after being called for positive blood cultures that were drawn here on 02/17. Patient's blood cultures grew out yeast. Patient was called and told to come to the emergency department earlier today because of this. He was seen here the night of 1027 into 9 at which time cultures were sent. Patient had a fever, tachycardia and hypotension and ultimately had a CTA which was concerning for pneumonia. He was discharged with Levaquin which she has been taking. States that he still feels tired and not himself. Last use of IV drugs was about a month ago. Patient apparently is taking Suboxone which she receives from Dr. Ponce. He otherwise does not have a primary care doctor and has not seen one in about 5 to 7 years. States that his girlfriend has hepatitis C. TRAVEL OUTSIDE OF THE [place] IN LAST 30 DAYS: No - HPI Associated symptoms: Weakness, Other - cough - Related Data Allergies/Adverse Reactions: hydrocodone Adverse Reaction (Verified 02/20/19 15:29) Past Medical History - General Information source: Patient, Relative, [facility] Records Cannot obtain history due to: Uncooperative - Social History Smoking Status: Current Every Day Smoker Cigarette use (# per day): Yes Chew tobacco use (# tins/day): No Drug Abuse: Heroin Lives with: Family Family History: Reviewed & Not Pertinent Patient has suicidal ideation: No Patient has homicidal ideation: No Malignancy Medical History: Reports Hx Testicular Cancer - vague hx of chemotherapy in [place] which he "stopped going to" GI Medical History: Reports: Hx Hepatitis - C Past Surgical History: Reports: Hx Tonsillectomy - Immunizations Hx Diphtheria, Pertussis, Tetanus Vaccination: Yes Review of Systems - Review of Systems Constitutional: See HPI, Malaise, Weakness, Other - positive blood culture, yeast EENT: No symptoms reported Cardiovascular: No symptoms reported Respiratory: Cough Gastrointestinal: No symptoms reported Genitourinary: No symptoms reported Male Genitourinary: No symptoms reported Musculoskeletal: No symptoms reported Skin: No symptoms reported Hematologic/Lymphatic: No symptoms reported Neurological/Psychological: No symptoms reported -: Yes All other systems reviewed and negative Physical Exam - Vital signs Vitals: Temp Pulse Resp BP Pulse Ox 97.9 F 98 18 122/67 100 02/20/19 15:22 02/20/19 15:22 02/20/19 15:22 02/20/19 15:22 02/20/19 15:22 Interpretation: Normal - General General appearance: Appears well, Alert - HEENT Head: Normocephalic, Atraumatic Eyes: Normal Pupils: PERRL - Respiratory Respiratory status: No respiratory distress Chest status: Nontender Breath sounds: Normal Chest palpation: Normal - Cardiovascular Rhythm: Regular Heart sounds: Normal auscultation Murmur: No - Abdominal Inspection: Normal Distension: No distension Bowel sounds: Normal Tenderness: Nontender Organomegaly: No organomegaly - Back Back: Normal, Nontender - Extremities General upper extremity: Normal inspection, Nontender, Normal color, Normal ROM, Normal temperature General lower extremity: Normal inspection, Nontender, Normal color, Normal ROM, Normal temperature, Normal weight bearing. 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 02/20/19 23:05 Called [facility] to inquire about his reported testicular cancer, transfer center says that going back 3 years they have no record of him being diagnosed or treated for any malignancy. 02/20/19 23:05 Received callback from [place] [facility], Dr. Camacho. Recommends the patient be admitted until sensitivities are back and cultures are negative. She is available by phone at [phone]. Initially recommended micafungin but that is not available. Agrees with fluconazole that has been given. We will keep giving fluconazole until cultures are back. Discussed amphotericin but would not do that right now. 02/21/19 01:23 Patient is a 23-year-old male with yeast in his blood cultures and pneumonia on chest x-ray for which she has been taking Levaquin. Family initially very upset about the wait time. Parents also caught smoking in bathroom and asked to step out. Discussed with patient concerns and reasons to keep him in the hospital. States that he is still not feeling well and would like to stay. Of note, HIV is negative and hepatitis panel is pending. There is initially some question if the patient had hepatitis C. He has not been diagnosed with that and I cannot find any thing in his records to confirm this. Stable at the time of admission to the hospitalist service. Blood cultures drawn again today. - Vital Signs Vital signs: Temp Pulse Resp BP Pulse Ox 98.4 F 73 14 124/79 100 02/21/19 01:06 02/21/19 01:06 02/21/19 01:06 02/21/19 01:06 02/21/19 01:06 - Laboratory Result Diagrams: 02/20/19 16:20 02/20/19 16:20 Laboratory results interpreted by me: 02/20/19 02/20/19 16:20 16:20 RDW 14.2 H Urine Urobilinogen 4.0 H Critical Care Note - Critical Care Note Total time excluding time spent on procedures (mins): 60 - Evaluation and manage ment of fungal uremic patient with multiple re-evaluations, counseling of family, coordination with specialist, infectious disease, counseling of patient and family, de-escalation of family Discharge - Discharge Clinical Impression: Fungemia, Intravenous drug user Pneumonia Qualifiers: Pneumonia type: due to unspecified organism Laterality: left Lung location: lower lobe of lung Qualified Code(s): J18.1 - Lobar pneumonia, unspecified organism Condition: Stable Disposition: ADMITTED INPATIENT Admitting Provider: Jamila (Hospitalist) Unit Admitted: Medical Floor I personally performed the services described in the documentation, reviewed and edited the documentation which was dictated to the scribe in my presence, and it accurately records my words and actions.
[2019-02-21] MEDS ORDERED: NALBUPHINE HCL INJ 10 MG/1 ML AMPULE IV PRN ×2 (01:34→01:57)
[2019-02-21] MEDS ORDERED: MAG HYDROX/AL HYDROX/SIMETH SUSP 30 ML UDCUP PO PRN (01:34)
[2019-02-21] MEDS ORDERED: NICOTINE 21 MG/24 HR PATCH.TD24 TD PRN (01:34)
[2019-02-21] MEDS ORDERED: ACETAMINOPHEN 325 MG TABLET PO PRN (01:34)
[2019-02-21] MEDS ORDERED: ONDANSETRON HCL INJ/PF 4 MG/2 ML SDV IV PRN (01:36)
[2019-02-21] MEDS: HEPARIN SOD (PORCINE) 5,000 UNIT/ML 1 ML VIAL SUBCUT SCH ×3 (05:29→22:05)
--- NOTE | 2019-02-21 05:49 | PDOC H&P ---
History of Present Illness Admission Date/PCP: 02/21/2019 01:10 NAHID GONZALEZ Patient complains of: Abnormal lab work History of Present Illness: CYNTHIA OLSON is a 23 year old male who returned to the emergency room at their request due to positive blood cultures. Patient states he was [facility] that he had positive blood cultures and should return to the hospital. His blood cultures were positive for yeast in both bottles and cultures are not yet complete with final identification and sensitivities. He was also positive for hepatitis C. He admits that he is feeling better now though still fatigued and somewhat weak from the pneumonia that he was diagnosed as having 3 days ago. He denies other associated or accompanying signs and symptoms. He denies prior similar episodes. He has identified his IV drug use as a possible aggravating factor for his positive blood cultures but he has not yet identified any ameliorating factors for this problem. In the ER he was noted to have a normal hemogram and chemistry profile. A infectious disease physician from [place] was contacted by the ER provider and recommended that the patient be admitted and treated with IV fluconazole and continued oral or IV Levaquin until his culture results are finalized. Patient was subsequently admitted to hospital for further evaluation treatment. 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 GI Medical History: Denies: Cirrhosis, Hepatitis Musculoskeltal Medical History: Denies: Arthritis, Gout Skin Medical History: Denies: Eczema, Psoriasis Psychiatric Medical History: Reports: Substance Abuse, Tobacco Dependency Denies: Alcohol Dependency Traumatic Medical History: Reports: None Hematology: Denies: Anemia, Bleeding Tendencies Infectious Medical History: Reports: Hepatitis C Past Surgical History Past Surgical History: Reports: Tonsillectomy Social History Information Source: Patient Lives with: Parents Smoking Status: Current Every Day Smoker Electronic Cigarette use?: No Frequency of Alcohol Use: None Hx Recreational Drug Use: Yes Drugs: Heroin Hx Prescription Drug Abuse: Yes - Currently on Suboxone provided by Dr. Ponce - Advance Directive Resuscitation Status: Full Code Surrogate healthcare decision maker:: Sherwin Horta Family History Family History: Malignancy Parental Family History Reviewed: Yes Children Family History Reviewed: No Sibling(s) Family History Reviewed.: Yes Medication/Allergy Home Medications: Albuterol Sulfate [Proair HFA Inhalation Aerosol 8.5 gm MDI] 2 puff IH Q4H PRN #1 mdi 06/03/18 Benzonatate [Tessalon Perle 100 mg Capsule] 100 mg PO Q8HP PRN #15 cap 06/03/18 Levofloxacin [Levaquin 750 mg Tablet] 750 mg PO DAILY #5 tablet 02/18/19 Allergies/Adverse Reactions: hydrocodone Adverse Reaction (Verified 02/20/19 15:29) Review of Systems Constitutional: PRESENT: as per HPI, fatigue, weakness. ABSENT: chills, fever(s) Eyes: ABSENT: visual disturbances, other - Eye pain Ears: ABSENT: hearing changes, other - Ear pain Nose, Mouth, and Throat: ABSENT: mouth pain, sore throat Cardiovascular: ABSENT: chest pain, palpitations Respiratory: PRESENT: cough - With recent pneumonia, dyspnea - With recent pneumonia Gastrointestinal: ABSENT: abdominal pain, constipation, diarrhea, nausea, vomiting Genitourinary: ABSENT: dysuria, hematuria Musculoskeletal: ABSENT: back pain, joint swelling, muscle weakness Integumentary: ABSENT: pruritus, rash Neurological: ABSENT: confusion, convulsions, focal weakness, memory loss, syncope Psychiatric: ABSENT: anxiety, depression Endocrine: ABSENT: cold intolerance, heat intolerance Hematologic/Lymphatic: ABSENT: easy bleeding, easy bruising Allergic/Immunologic: ABSENT: seasonal rhinorrhea Physical Exam Vital Signs: Temp Pulse Resp BP Pulse Ox 98.4 F 73 14 124/79 100 02/21/19 01:06 02/21/19 01:06 02/21/19 01:06 02/21/19 01:06 02/21/19 01:06 Intake & Output 02/19/19 02/20/19 02/21/19 23:59 23:59 23:59 Intake Total 200 Balance 200 Weight 75.2 kg General appearance: PRESENT: no acute distress, cooperative Head exam: PRESENT: atraumatic, normocephalic Eye exam: PRESENT: conjunctiva pink. ABSENT: conjunctival injection, scleral icterus Ear exam: PRESENT: normal external ear exam. ABSENT: bleeding, drainage Mouth exam: PRESENT: dry mucosa, neck supple Neck exam: ABSENT: thyromegaly, tracheal deviation Respiratory exam: PRESENT: rales - Coarse rales noted in the left base, symmetrical, unlabored Cardiovascular exam: PRESENT: RRR. ABSENT: clicks, gallop, rubs Pulses: PRESENT: normal dorsalis pedis pul GI/Abdominal exam: PRESENT: normal bowel sounds, soft Rectal exam: PRESENT: deferred Extremities exam: ABSENT: joint swelling, pedal edema Musculoskeletal exam: ABSENT: deformity, dislocation Neurological exam: PRESENT: alert, oriented to person, oriented to place, oriented to time, oriented to situation, CN II-XII grossly intact. ABSENT: motor sensory deficit Psychiatric exam: PRESENT: appropriate affect, normal mood Skin exam: PRESENT: dry, intact, warm. ABSENT: jaundice, rash, urticaria Results Laboratory Results: 02/20/19 16:20 02/20/19 16:20 02/20/19 02/20/19 02/20/19 16:20 16:20 16:20 WBC 7.0 RBC 4.71 Hgb 13.6 Hct 39.9 MCV 85 MCH 28.9 MCHC 34.2 RDW 14.2 H Plt Count 331 Seg Neutrophils % 51.0 Sodium 143.4 Potassium 4.2 Chloride 102 Carbon Dioxide 30 Anion Gap 11 BUN 9 Creatinine 0.87 Est GFR ( Amer) > 60 Glucose 107 Calcium 10.0 Total Bilirubin 0.4 AST 46 Alkaline Phosphatase 113 Total Protein 7.7 Albumin 4.2 Urine Color YELLOW Urine Appearance CLEAR Urine pH 7.0 Ur Specific [place] 1.016 Urine Protein NEGATIVE Urine Glucose (UA) NEGATIVE Urine Ketones NEGATIVE Urine Blood NEGATIVE Assessment and Plan - Diagnosis (1) Fungemia Is this a current diagnosis for this admission?: Yes (2) Pneumonia Qualifiers: Pneumonia type: due to unspecified organism Laterality: left Lung location: lower lobe of lung Qualified Code(s): J18.1 - Lobar pneumonia, unspecified organism Is this a current diagnosis for this admission?: Yes (3) Intravenous drug user Is this a current diagnosis for this admission?: Yes (4) Hepatitis C Qualifiers: Viral hepatitis chronicity: unspecified Hepatic coma status: without hepatic coma Qualified Code(s): B19.20 - Unspecified viral hepatitis C without hepatic coma Is this a current diagnosis for this admission?: Yes (5) Tobacco use disorder, severe, dependence Is this a current diagnosis for this admission?: Yes - Plan Summary Summary: Patient will be admitted to the medical floor and treated with IV Diflucan and oral Levaquin until the final identity and sensitivity results of his fungemia are known. At that point if sensitive to Diflucan the patient can be converted to oral therapy and discharged. A baseline echocardiogram will be obtained. Patient will receive supportive and symptomatic cares as required during his hospital course. Smoking cessation is advised and counseled briefly at the bedside. A nicotine replacement patch is available for the patient's use, if desired. Daily CBCs and metabolic profiles will be followed. - Time Time Spent with patient: 25-34 minutes Smoking Cessation Education: 3 to 10 minutes Medications reviewed and adjusted accordingly: Yes Anticipated discharge: Home - Inpatient Certification Based on my medical assessment, after consideration of the patient's comorbidities, presenting symptoms, or acuity I expect that the services needed warrant INPATIENT care.: Yes I certify that my determination is in accordance with my understanding of Medicare's requirements for reasonable and necessary INPATIENT services [42 CFR 412.3e].: Yes Medical Necessity: Significant Comorbidiites Make Outpatient Treatment Too Risky, Need for IV Antibiotics, Risk of Complication if Not Cared For in Hospital
[2019-02-21] MEDS: ACETYLCYSTEINE 20% SOLN 800 MG/4 ML VIAL.NEB NEB SCH ×2 (08:16→20:35)
[2019-02-21] MEDS: IPRATROPIUM BROMIDE 0.02% NEB 0.5 MG/2.5 ML AMPUL NEB SCH ×2 (08:16→16:42)
[2019-02-21] MEDS: LEVALBUTEROL HCL NEB 1.25 MG/3 ML AMPUL NEB SCH ×2 (08:16→16:42)
[2019-02-21] MEDS ORDERED: INFLUENZA QUAD (6MOS+) 2019-20 VAC 0.5 ML SYR IM ONE (08:54)
[2019-02-21] MEDS ORDERED: LEVOFLOXACIN 750 MG TABLET PO SCH (10:00)
[2019-02-21] MEDS: DOCUSATE SODIUM 100 MG CAPSULE PO SCH ×2 (10:24→17:16)
[2019-02-21] MEDS: FAMOTIDINE 20 MG TABLET PO SCH ×2 (10:25→21:54)
--- NOTE | 2019-02-21 12:02 | PDOC PROGRESS REPORT ---
Subjective Progress Note for:: 02/21/19 Reason For Visit: PNEUMONIA,FUNGEMIA Physical Exam Vital Signs: Temp Pulse Resp BP Pulse Ox 97.7 F 104 H 16 128/67 H 100 02/21/19 08:51 02/21/19 08:51 02/21/19 08:51 02/21/19 08:51 02/21/19 08:51 Intake & Output 02/20/19 02/21/19 02/22/19 06:59 06:59 06:59 Intake Total 860 Balance 860 Weight 75.2 kg 72.7 kg General appearance: PRESENT: no acute distress, other - Patient states he does not know why he is here Respiratory exam: PRESENT: clear to auscultation boby. ABSENT: rales, rhonchi, wheezes Cardiovascular exam: PRESENT: RRR. ABSENT: diastolic murmur, rubs, systolic murmur Neurological exam: PRESENT: alert, awake, oriented to person, oriented to place, oriented to time, oriented to situation, CN II-XII grossly intact. ABSENT: motor sensory deficit Psychiatric exam: PRESENT: appropriate affect, normal mood. ABSENT: homicidal ideation, suicidal ideation Results Laboratory Results: 02/20/19 16:20 02/20/19 16:20 02/20/19 02/20/19 02/20/19 16:20 16:20 16:20 WBC 7.0 RBC 4.71 Hgb 13.6 Hct 39.9 MCV 85 MCH 28.9 MCHC 34.2 RDW 14.2 H Plt Count 331 Seg Neutrophils % 51.0 Sodium 143.4 Potassium 4.2 Chloride 102 Carbon Dioxide 30 Anion Gap 11 BUN 9 Creatinine 0.87 Est GFR ( Amer) > 60 Glucose 107 Calcium 10.0 Total Bilirubin 0.4 AST 46 Alkaline Phosphatase 113 Total Protein 7.7 Albumin 4.2 Urine Color YELLOW Urine Appearance CLEAR Urine pH 7.0 Ur Specific [place] 1.016 Urine Protein NEGATIVE Urine Glucose (UA) NEGATIVE Urine Ketones NEGATIVE Urine Blood NEGATIVE Assessment and Plan - Diagnosis (1) Fungemia Is this a current diagnosis for this admission?: Yes (2) Hepatitis C Qualifiers: Viral hepatitis chronicity: unspecified Hepatic coma status: without hep atic coma Qualified Code(s): B19.20 - Unspecified viral hepatitis C without hepatic coma Is this a current diagnosis for this admission?: Yes (3) Intravenous drug user Is this a current diagnosis for this admission?: Yes (4) Tobacco use disorder, severe, dependence Is this a current diagnosis for this admission?: Yes (5) Pneumonia Qualifiers: Pneumonia type: due to unspecified organism Laterality: left Lung location: lower lobe of lung Qualified Code(s): J18.1 - Lobar pneumonia, unspecified organism Is this a current diagnosis for this admission?: Yes - Plan Summary Summary: Patient will be admitted to the medical floor and treated with IV Diflucan and oral Levaquin until the final identity and sensitivity results of his fungemia are known. At that point if sensitive to Diflucan the patient can be converted to oral therapy and discharged. A baseline echocardiogram will be obtained. Patient will receive supportive and symptomatic cares as required during his hospital course. Smoking cessation is advised and counseled briefly at the bedside. A nicotine replacement patch is available for the patient's use, if desired. Daily CBCs and metabolic profiles will be followed. 02/21/2019 Long review of the chart history and discussion with patient still in the ER. patient does not appear to be septic or toxic. Agree with above. WBCs 3 days ago were 9000 last night 7000 platelets are normal Electrolytes are grossly normal, drug screen is unconfirmed positive for opiates, HIV negative flu AMB negative. Hep C positive. Other liver studies pending Echocardiogram pending Patient admitted to hospitalist that he is an IV drug user. We will wait for further labs continue IV Diflucan's and oral Levaquin - Time Time Spent with patient: 25-34 minutes
[2019-02-21] MEDS: BUPRENORPHINE HCL 2 MG SUBLINGUAL TABLET SL SCH (14:57)
[2019-02-21] MEDS ORDERED: GENTAMICIN SULFATE 0 MG in DEXTROSE 5%-WATER 100 ML IV NR (16:15)
[2019-02-21] MEDS ORDERED: VANCOMYCIN HCL 0 MG in DEXTROSE 5%-WATER 250 ML IV NR (16:15)
--- NOTE | 2019-02-21 16:40 | Progress Note ---
Provider Note Provider Note: Today at approximately 1530 hrs. spoke to the farm loan representative, Dr. Flanagan, and we went over the images for the echocardiogram.. He was concerned that there may be some vegetation on a couple of the heart valves. He stated that the patient needed further studies and after discussing this with , we are going to try to get a PAPO for early next week. In the meantime I am going to start vancomycin and gentamicin IV cover for endocarditis. We will continue the IV Diflucan's and discontinue the p.o. Levaquin. I explained this to the patient and his significant other as well as his parents who are in the room at the time. I also informed him that he would need to be in the hospital at least probably 1 week receiving IV antibiotics, 4-6 more weeks as an outpatient based on culture results. I also told him that this could potentially be a life-threatening illness. He seems satisfied with today's discussion, all their questions were answered.
[2019-02-21] MEDS: NICOTINE 14 MG/24 HR PATCH.TD24 TD SCH (17:16)
[2019-02-21] MEDS: VANCOMYCIN HCL 1,250 MG in DEXTROSE 5%-WATER 250 ML IV SCH (17:41)
[2019-02-21] MEDS: LEVALBUTEROL HCL NEB 0.63 MG/3 ML AMPUL NEB PRN (20:35)
[2019-02-21] MEDS: NALBUPHINE HCL INJ 10 MG/1 ML AMPULE IV PRN (20:45)
[2019-02-21] MEDS: GENTAMICIN SULFATE 120 MG in DEXTROSE 5%-WATER 100 ML IV SCH (21:54)
[2019-02-21] MEDS: ZOLPIDEM TARTRATE 5 MG TABLET PO PRN (21:54)
[2019-02-21] MEDS ORDERED: FLUCONAZOLE 400 MG/NS RTU 400 MG/200 ML RTUPB IV SCH (22:00)
[2019-02-21] MEDS: FLUCONAZOLE 400 MG/NS RTU 400 MG/200 ML RTUPB IV SCH (23:34)
[2019-02-22] MEDS: LEVALBUTEROL HCL NEB 1.25 MG/3 ML AMPUL NEB SCH ×2 (00:02→08:29)
[2019-02-22] MEDS: IPRATROPIUM BROMIDE 0.02% NEB 0.5 MG/2.5 ML AMPUL NEB SCH ×2 (00:02→08:29)
[2019-02-22] MEDS: VANCOMYCIN HCL 1,250 MG in DEXTROSE 5%-WATER 250 ML IV SCH ×3 (02:55→17:24)
[2019-02-22] MEDS: NALBUPHINE HCL INJ 10 MG/1 ML AMPULE IV PRN ×2 (04:07→07:50)
[2019-02-22] MEDS: BUPRENORPHINE HCL 2 MG SUBLINGUAL TABLET SL SCH ×2 (05:01→17:24)
[2019-02-22] MEDS: HEPARIN SOD (PORCINE) 5,000 UNIT/ML 1 ML VIAL SUBCUT SCH ×3 (05:01→21:02)
[2019-02-22 05:10] LABS: HEMATOCRIT 37.6 % (37.9-51.0); HEMOGLOBIN 12.9 g/dL (13.5-17.0); MEAN CORPUSCULAR HGB CONC 34.4 g/dL (32.0-36.0); MEAN CORPUSCULAR VOLUME 84 fl (80-97); PLATELET COUNT 352 10^3/uL (150-450); RED BLOOD COUNT 4.46 10^6/uL (4.35-5.55); RED CELL DISTRIBUTION WIDTH 14.5 % (11.5-14.0); WHITE BLOOD COUNT 8.9 10^3/uL (4.0-10.5)
[2019-02-22 05:28] LABS: ANION GAP 9 (5-19); BLOOD UREA NITROGEN 10 mg/dL (7-20); CARBON DIOXIDE 30 mmol/L (22-30); CHLORIDE 103 mmol/L (98-107); GLUCOSE 108 mg/dL (75-110); POTASSIUM 4.7 mmol/L (3.6-5.0)
[2019-02-22 05:37] LABS: HEPATITS B SURFACE ANTIGEN Negative (Negative)
[2019-02-22] MEDS: ACETYLCYSTEINE 20% SOLN 800 MG/4 ML VIAL.NEB NEB SCH (08:29)
[2019-02-22 09:19] LABS: HEPATITIS C VIRUS ANTIBODY <0.1 s/co ratio (0.0-0.9)
[2019-02-22] MEDS: DOCUSATE SODIUM 100 MG CAPSULE PO SCH ×2 (09:47→17:24)
[2019-02-22] MEDS: FAMOTIDINE 20 MG TABLET PO SCH ×2 (09:47→21:01)
[2019-02-22] MEDS: NICOTINE 14 MG/24 HR PATCH.TD24 TD SCH (09:47)
[2019-02-22] MEDS: TRAMADOL HCL 50 MG TABLET PO PRN ×3 (10:52→23:30)
--- NOTE | 2019-02-22 12:26 | PDOC PROGRESS REPORT ---
Subjective Progress Note for:: 02/22/19 Reason For Visit: PNEUMONIA,FUNGEMIA 02/22/2019 Probable endocarditis Physical Exam Vital Signs: Temp Pulse Resp BP Pulse Ox 97.9 F 77 16 109/73 99 02/22/19 08:00 02/22/19 08:29 02/22/19 08:29 02/22/19 08:00 02/22/19 08:29 Intake & Output 02/21/19 02/22/19 02/23/19 06:59 06:59 05:59 Intake Total 860 2585 Balance 860 2585 Weight 75.2 kg 72.8 kg General appearance: PRESENT: no acute distress Respiratory exam: PRESENT: clear to auscultation boby. ABSENT: rales, rhonchi, wheezes Cardiovascular exam: PRESENT: RRR. ABSENT: diastolic murmur, rubs, systolic murmur Neurological exam: PRESENT: alert, awake, oriented to person, oriented to place, oriented to time, oriented to situation, CN II-XII grossly intact. ABSENT: motor sensory deficit Psychiatric exam: PRESENT: appropriate affect, normal mood, other - Patient in good spirits, continuing to get his Suboxone in the hospital. ABSENT: homicidal ideation, suicidal ideation Results Laboratory Results: 02/22/19 04:51 02/22/19 04:51 02/22/19 02/22/19 04:51 04:51 WBC 8.9 RBC 4.46 Hgb 12.9 L Hct 37.6 L MCV 84 MCH 29.0 MCHC 34.4 RDW 14.5 H Plt Count 352 Sodium 142.4 Potassium 4.7 Chloride 103 Carbon Dioxide 30 Anion Gap 9 BUN 10 Creatinine 0.99 Est GFR ( Amer) > 60 Glucose 108 Calcium 10.0 Assessment and Plan - Diagnosis (1) Fungemia Is this a current diagnosis for this admission?: Yes (2) Hepatitis C Qualifiers: Viral hepatitis chronicity: unspecified Hepatic coma status: without hepatic coma Qualified Code(s): B19.20 - Unspecified viral hepatitis C without hepatic coma Is this a current diagnosis for this admission?: Yes (3) Intravenous drug user Is this a current diagnosis for this admission?: Yes (4) Tobacco use disorder, severe, dependence Is this a current diagnosis for this admission?: Yes (5) Pneumonia Qualifiers: Pneumonia type: due to unspecified organism Laterality: left Lung location: lower lobe of lung Qualified Code(s): J18.1 - Lobar pneumonia, unspecified organism Is this a current diagnosis for this admission?: Yes - Plan Summary Summary: Patient will be admitted to the medical floor and treated with IV Diflucan and oral Levaquin until the final identity and sensitivity results of his fungemia are known. At that point if sensitive to Diflucan the patient can be converted to oral therapy and discharged. A baseline echocardiogram will be obtained. Patient will receive supportive and symptomatic cares as required during his hospital course. Smoking cessation is advised and counseled briefly at the bedside. A nicotine replacement patch is available for the patient's use, if desired. Daily CBCs and metabolic profiles will be followed. 02/21/2019 Long review of the chart history and discussion with patient still in the ER. patient does not appear to be septic or toxic. Agree with above. WBCs 3 days ago were 9000 last night 7000 platelets are normal Electrolytes are grossly normal, drug screen is unconfirmed positive for opiates, HIV negative flu AMB negative. Hep C positive. Other liver studies pending Echocardiogram pending Patient admitted to hospitalist that he is an IV drug user. We will wait for further labs continue IV Diflucan's and oral Levaquin 02/22/2019 Echocardiogram was discussed yesterday with the dredge lever operator and he felt it was suggested for endocarditis Patient was switched yesterday to vancomycin and gentamicin IV Have discussed this with attending who is going to contact cardiology Sunday and set up a PAPO Patient's labs remained stable, patient's vital signs are stable as well Patient appears to be negative for hepatitis A B and C - Time Time Spent with patient: 25-34 minutes
[2019-02-22 18:11] LABS: VANCOMYCIN,TROUGH 21.8 ug/mL (5.0-20.0)
[2019-02-22] MEDS: LEVALBUTEROL HCL NEB 0.63 MG/3 ML AMPUL NEB PRN (18:53)
[2019-02-22] MEDS: GENTAMICIN SULFATE 120 MG in DEXTROSE 5%-WATER 100 ML IV SCH (21:01)
[2019-02-22] MEDS: FLUCONAZOLE 400 MG/NS RTU 400 MG/200 ML RTUPB IV SCH (23:29)
[2019-02-22] MEDS: ZOLPIDEM TARTRATE 5 MG TABLET PO PRN (23:30)
[2019-02-23] MEDS: VANCOMYCIN HCL 1,250 MG in DEXTROSE 5%-WATER 250 ML IV SCH ×2 (01:10→09:30)
[2019-02-23] MEDS: HEPARIN SOD (PORCINE) 5,000 UNIT/ML 1 ML VIAL SUBCUT SCH ×3 (05:29→22:06)
[2019-02-23] MEDS: BUPRENORPHINE HCL 2 MG SUBLINGUAL TABLET SL SCH ×2 (05:30→17:19)
[2019-02-23 05:39] LABS: HEMATOCRIT 36.3 % (37.9-51.0); HEMOGLOBIN 12.4 g/dL (13.5-17.0); MEAN CORPUSCULAR HEMOGLOBIN 28.7 pg (27.0-33.4); MEAN CORPUSCULAR VOLUME 84 fl (80-97); PLATELET COUNT 370 10^3/uL (150-450); RED BLOOD COUNT 4.31 10^6/uL (4.35-5.55); RED CELL DISTRIBUTION WIDTH 14.5 % (11.5-14.0); WHITE BLOOD COUNT 9.5 10^3/uL (4.0-10.5)
[2019-02-23 06:01] LABS: ANION GAP 8 (5-19); BLOOD UREA NITROGEN 15 mg/dL (7-20); CALCIUM 9.6 mg/dL (8.4-10.2); CARBON DIOXIDE 28 mmol/L (22-30); CHLORIDE 102 mmol/L (98-107); GLUCOSE 93 mg/dL (75-110); POTASSIUM 4.3 mmol/L (3.6-5.0)
[2019-02-23] MEDS: TRAMADOL HCL 50 MG TABLET PO PRN ×4 (08:33→22:11)
[2019-02-23] MEDS: DOCUSATE SODIUM 100 MG CAPSULE PO SCH ×2 (09:30→17:19)
[2019-02-23] MEDS: NICOTINE 14 MG/24 HR PATCH.TD24 TD SCH (09:30)
[2019-02-23] MEDS: FAMOTIDINE 20 MG TABLET PO SCH ×2 (09:30→22:10)
--- NOTE | 2019-02-23 11:48 | XCELERA REPORT ---
[address] [address] Transthoracic Echocardiogram Report Name: CYNTHIA OLSON Age: 23 yrs Gender: Male : 1995 Patient Status: Inpatient Patient Location: [address] [place], [place] [address] Study Date: 02/21/2019 09:34 AM Height: 69 in Weight: 165 lb BSA: 1.9 m2 Procedure: A two-dimensional transthoracic echocardiogram with color flow and Doppler was performed. Study Quality: Fair. Reason For Study: Fungemia History: Fungemia / Endocarditis. Ordering Physician: SAIDA CUMMINGS Performed By: Traci Santos Interpretation Summary The left ventricle is normal in size. There is normal left ventricular wall thickness. LV EF is 70% Left ventricular systolic function is normal. Doppler measurements suggest normal left ventricular diastolic function The left ventricular wall motion is normal. There is no thrombus. No ASD , VSD , or PFO seen. The right ventricle is normal in size and function. The right atrium is normal. The left atrial size is normal. There is no evidence of mitral valve prolapse. Cannot eniterly exclude a vegatation on the anterior mitral valve leaflet.Recommend PAPO. There is no mitral valve stenosis. There is a trace amount of mitral regurgitation Cannot eniterly exclude a vegatation on f the aoric valve leaflet.Recommend PAPO. There is no aortic valve stenosis There is no LVOT obstruction. No aortic regurgitation is present. There is no tricuspid stenosis. There is a trace to mild amount of tricuspid regurgitation There is mild pulmonary hypertension by echo RVSP is 33 to 38 mm of Hg , with RA mean of to 10. There is no pulmonic valvular stenosis. There is no pulmonic valvular regurgitation. The aortic root is normal size. The inferior vena cava appeared normal and decreased > 50% with respiration (RAP 5-10 mmHg) There is no pericardial effusion. MMode/2D Measurements & Calculations RVDd: 3.1 cm LVIDd: 4.8 cm FS: 39.7 % Ao root diam: 2.7 cm IVSd: 0.91 cm LVIDs: 2.9 cm EDV(Teich): LVPWd: 0.89 cm 108.5 ml Ao root area: ESV(Teich): 5.6 cm2 32.3 ml LA dimension: EF(Teich): 70.2 % 3.8 cm LVLd ap4: 8.6 cm SV(MOD-sp4): EDV(MOD-sp4): 80.0 ml 105.0 ml LVLs ap4: 6.8 cm ESV(MOD-sp4): 25.0 ml EF(MOD-sp4): 76.2 % Doppler Measurements & Calculations MV E max faustino: MV P1/2t max faustino: Ao V2 max: LV V1 max P.1 cm/sec 84.1 cm/sec 123.2 cm/sec 4.1 mmHg MV A max faustino: MV P1/2t: 70.8 msec Ao max P.1 mmHgLV V1 max: 61.7 cm/sec MVA(P1/2t): 3.1 cm2 100.6 cm/sec MV E/A: 1.4 MV dec slope: 347.9 cm/sec2 MV dec time: 0.24 sec PA V2 max: TR max faustino: MV P1/2t-pr_phl: 102.7 cm/sec 264.7 cm/sec 70.8 msec PA max P.2 mmHgTR max P.0 mmHg Left Ventricle The left ventricle is normal in size. There is normal left ventricular wall thickness. LV EF is 70%. Left ventricular systolic function is normal. Doppler measurements suggest normal left ventricular diastolic function. The left ventricular wall motion is normal. There is no thrombus. No ASD , VSD , or PFO seen. Right Ventricle The right ventricle is normal in size and function. Atria The right atrium is normal. The left atrial size is normal. Mitral Valve There is no evidence of mitral valve prolapse. Cannot eniterly exclude a vegatation on the anterior mitral valve leaflet.Recommend PAPO. There is no mitral valve stenosis. There is a trace amount of mitral regurgitation. Aortic Valve Cannot eniterly exclude a vegatation on f the aoric valve leaflet.Recommend PAPO. There is no aortic valve stenosis. There is no LVOT obstruction. No aortic regurgitation is present. Tricuspid Valve There is no tricuspid stenosis. There is a trace to mild amount of tricuspid regurgitation. There is mild pulmonary hypertension by echo. RVSP is 33 to 38 mm of Hg , with RA mean of to 10. Pulmonic Valve There is no pulmonic valvular stenosis. There is no pulmonic valvular regurgitation. Great Vessels The aortic root is normal size. The inferior vena cava appeared normal and decreased > 50% with respiration (RAP 5-10 mmHg). Effusions There is no pericardial effusion. : SAIDA CUMMINGS, Ritu
--- NOTE | 2019-02-23 13:00 | PDOC PROGRESS REPORT ---
Subjective Progress Note for:: 02/23/19 Reason For Visit: PNEUMONIA,FUNGEMIA 02/23/2019 IV drug use though none in the last 5 weeks. Possible bacterial endocarditis Physical Exam Vital Signs: Temp Pulse Resp BP Pulse Ox 97.7 F 72 15 91/44 L 97 02/23/19 12:38 02/23/19 12:38 02/23/19 12:38 02/23/19 12:38 02/23/19 12:38 Intake & Output 02/22/19 02/23/19 02/24/19 07:59 06:59 06:59 Intake Total 240 Balance 240 Weight General appearance: PRESENT: no acute distress Respiratory exam: PRESENT: clear to auscultation boby. ABSENT: rales, rhonchi, wheezes Cardiovascular exam: PRESENT: RRR. ABSENT: diastolic murmur, rubs, systolic murmur Neurological exam: PRESENT: alert, awake, oriented to person, oriented to place, oriented to time, oriented to situation, CN II-XII grossly intact. ABSENT: motor sensory deficit Psychiatric exam: PRESENT: appropriate affect, normal mood, other - Patient very rational and forthright concerning previous substance abuse Significant other in the room when this was discussed. ABSENT: homicidal ideation, suicidal ideation Results Laboratory Results: 02/23/19 05:22 02/23/19 05:22 02/22/19 02/23/19 02/23/19 17:30 05:22 05:22 WBC 9.5 RBC 4.31 L Hgb 12.4 L Hct 36.3 L MCV 84 MCH 28.7 MCHC 34.0 RDW 14.5 H Plt Count 370 Sodium 138.3 Potassium 4.3 Chloride 102 Carbon Dioxide 28 Anion Gap 8 BUN 15 Creatinine 1.02 1.01 Est GFR ( Amer) > 60 > 60 Glucose 93 Calcium 9.6 Assessment and Plan - Diagnosis (1) Fungemia Is this a current diagnosis for this admission?: Yes (2) Hepatitis C Qualifiers: Viral hepatitis chronicity: unspecified Hepatic coma status: without hepatic coma Qualified Code(s): B19.20 - Unspecified viral hepatitis C without hepatic coma Is this a current diagnosis for this admission?: Yes (3) Intravenous drug user Is this a current diagnosis for this admission?: Yes (4) Tobacco use disorder, severe, dependence Is this a current diagnosis for this admission?: Yes (5) Pneumonia Qualifiers: Pneumonia type: due to unspecified organism Laterality: left Lung location: lower lobe of lung Qualified Code(s): J18.1 - Lobar pneumonia, unspecified organism Is this a current diagnosis for this admission?: Yes (6) Endocarditis Is this a current diagnosis for this admission?: Yes - Plan Summary Summary: Patient will be admitted to the medical floor and treated with IV Diflucan and oral Levaquin until the final identity and sensitivity results of his fungemia are known. At that point if sensitive to Diflucan the patient can be converted to oral therapy and discharged. A baseline echocardiogram will be obtained. Patient will receive supportive and symptomatic cares as required during his hospital course. Smoking cessation is advised and counseled briefly at the bedside. A nicotine replacement patch is available for the patient's use, if desired. Daily CBCs and metabolic profiles will be followed. 02/21/2019 Long review of the chart history and discussion with patient still in the ER. patient does not appear to be septic or toxic. Agree with above. WBCs 3 days ago were 9000 last night 7000 platelets are normal Electrolytes are grossly normal, drug screen is unconfirmed positive for opiates, HIV negative flu AMB negative. Hep C positive. Other liver studies pending Echocardiogram pending Patient admitted to hospitalist that he is an IV drug user. We will wait for further labs continue IV Diflucan's and oral Levaquin 02/22/2019 Echocardiogram was discussed yesterday with the accountant property and he felt it was suggested for endocarditis Patient was switched yesterday to vancomycin and gentamicin IV Have discussed this with attending who is going to contact cardiology Sunday and set up a PAPO Patient's labs remained stable, patient's vital signs are stable as well Patient appears to be negative for hepatitis A B and C 02/23/2019 Patient remains afebrile blood pressure remained stable O2 sat is 97% on room air White count still normal H&H stable, renal functions normal ,liver functions normal ,glucose normal Blood cultures negative x48 hours Echocardiogram reported in the chart, EF 70%, cannot entirely exclude a vegetation on the anterior mitral valve recommend PAPO Cannot entirely exclude a vegetation on the aortic valve leaflet recommend PAPO Trace amount of tricuspid regurgitation, mild pulmonary hypertension Plan to have PAPO performed this week Patient and his significant other who is in the room had a long discussion concerning IV drug usage, patient's past drug usage, dangers of a PICC line. She states he has not used any IV heroin in 5 weeks, even prior to that he only used IV drugs for 3 months. Patient states his only other substance abuse is marijuana and occasionally took Percocet Since significant other who had a baby 5 weeks ago was also a IV drug user but has stopped 2 months ago. Both individuals are involved in substance abuse clinics and on Suboxone. Both individuals get regular drug testing by the clinic. Patient was told of the dangers and potential life-threatening complications from IV drug use with a PICC line Patient understood the risk and would like to proceed with a PICC line for ease of continued IV antibiotics. Will be ordered tomorrow. Dr. Alan and I have also discussed the risk and benefits of PICC line in this patient. Dr. Alan has shared his concerns for patient's medical treatment and history of substance abuse. He feels that if patient is competent and willing to not use illegal IV substances that the medical benefits of a PICC line outway the risks. - Time Time Spent with patient: 35 or more minutes
[2019-02-23] MEDS: LEVALBUTEROL HCL NEB 0.63 MG/3 ML AMPUL NEB PRN (17:19)
[2019-02-23] MEDS ORDERED: HYDROXYZINE PAMOATE 50 MG CAPSULE PO SCH (22:00)
[2019-02-23] MEDS: GENTAMICIN SULFATE 120 MG in DEXTROSE 5%-WATER 100 ML IV SCH (22:06)
[2019-02-23] MEDS: CLONAZEPAM 1 MG TABLET PO SCH (22:09)
[2019-02-23] MEDS: MAGNESIUM HYDROXIDE SUSP 30 ML UDCUP PO PRN (22:18)
[2019-02-24] MEDS: FLUCONAZOLE 400 MG/NS RTU 400 MG/200 ML RTUPB IV SCH ×2 (01:38→23:10)
[2019-02-24] MEDS: VANCOMYCIN HCL 1,000 MG in DEXTROSE 5%-WATER 250 ML IV SCH ×3 (03:16→17:43)
[2019-02-24] MEDS: HEPARIN SOD (PORCINE) 5,000 UNIT/ML 1 ML VIAL SUBCUT SCH ×3 (05:14→21:16)
[2019-02-24 05:26] LABS: HEMATOCRIT 36.6 % (37.9-51.0); HEMOGLOBIN 12.5 g/dL (13.5-17.0); MEAN CORPUSCULAR HEMOGLOBIN 28.6 pg (27.0-33.4); MEAN CORPUSCULAR HGB CONC 34.2 g/dL (32.0-36.0); MEAN CORPUSCULAR VOLUME 84 fl (80-97); PLATELET COUNT 386 10^3/uL (150-450); RED BLOOD COUNT 4.38 10^6/uL (4.35-5.55); RED CELL DISTRIBUTION WIDTH 14.1 % (11.5-14.0)
[2019-02-24 06:02] LABS: ANION GAP 10 (5-19); BLOOD UREA NITROGEN 15 mg/dL (7-20); CALCIUM 9.4 mg/dL (8.4-10.2); CARBON DIOXIDE 29 mmol/L (22-30); CHLORIDE 101 mmol/L (98-107); GLUCOSE 91 mg/dL (75-110); POTASSIUM 4.4 mmol/L (3.6-5.0)
[2019-02-24] MEDS: BUPRENORPHINE HCL 2 MG SUBLINGUAL TABLET SL SCH ×2 (06:47→17:29)
[2019-02-24] MEDS ORDERED: GLUCAGON,HUMAN RECOMB 1 MG INJ SUBCUT PRN (07:15)
[2019-02-24] MEDS ORDERED: DEXTROSE 50%-WATER 25 GM/50 ML DISP.SYRIN IV PRN ×2 (07:15)
[2019-02-24] MEDS ORDERED: DEXTROSE 40% GEL 15 GM TUBE PO PRN ×2 (07:15)
[2019-02-24] MEDS: FAMOTIDINE 20 MG TABLET PO SCH ×2 (09:57→21:21)
[2019-02-24] MEDS: DOCUSATE SODIUM 100 MG CAPSULE PO SCH ×2 (09:57→17:29)
--- NOTE | 2019-02-24 10:19 | PDOC PROGRESS REPORT ---
Subjective Progress Note for:: 02/24/19 Reason For Visit: PNEUMONIA,FUNGEMIA 02/24/2019 please see the plan summary Physical Exam Vital Signs: Temp Pulse Resp BP Pulse Ox 98.5 F 81 16 110/62 100 02/23/19 23:57 02/23/19 23:57 02/23/19 23:57 02/23/19 23:57 02/23/19 23:57 Intake & Output 02/23/19 02/24/19 02/25/19 06:59 06:59 06:59 Intake Total 1840 Balance 1840 Weight 73.6 kg General appearance: PRESENT: no acute distress, other - Patient lying in bed eating breakfast with his significant other Respiratory exam: PRESENT: clear to auscultation boby. ABSENT: rales, rhonchi, wheezes Cardiovascular exam: PRESENT: RRR. ABSENT: diastolic murmur, rubs, systolic murmur Neurological exam: PRESENT: alert, awake, oriented to person, oriented to place, oriented to time, oriented to situation, CN II-XII grossly intact. ABSENT: motor sensory deficit Psychiatric exam: PRESENT: anxious, other - Patient is anxious about the PICC line as well as the PAPO Results Laboratory Results: 02/24/19 04:37 02/24/19 04:37 02/24/19 02/24/19 04:37 04:37 WBC 9.0 RBC 4.38 Hgb 12.5 L Hct 36.6 L MCV 84 MCH 28.6 MCHC 34.2 RDW 14.1 H Plt Count 386 Sodium 140.3 Potassium 4.4 Chloride 101 Carbon Dioxide 29 Anion Gap 10 BUN 15 Creatinine 0.98 Est GFR ( Amer) > 60 Glucose 91 Calcium 9.4 Assessment and Plan - Diagnosis (1) Fungemia Is this a current diagnosis for this admission?: Yes (2) Hepatitis C Qualifiers: Viral hepatitis chronicity: unspecified Hepatic coma status: without hepatic coma Qualified Code(s): B19.20 - Unspecified viral hepatitis C without hepatic coma Is this a current diagnosis for this admission?: Yes (3) Intravenous drug user Is this a current diagnosis for this admission?: Yes (4) Tobacco use disorder, severe, dependence Is this a current diagnosis for this admission?: Yes (5) Pneumonia Qualifiers: Pneumonia type: due to unspecified organism Laterality: left Lung lo cation: lower lobe of lung Qualified Code(s): J18.1 - Lobar pneumonia, unspecified organism Is this a current diagnosis for this admission?: Yes (6) Endocarditis Is this a current diagnosis for this admission?: Yes - Plan Summary Summary: Patient will be admitted to the medical floor and treated with IV Diflucan and oral Levaquin until the final identity and sensitivity results of his fungemia are known. At that point if sensitive to Diflucan the patient can be converted to oral therapy and discharged. A baseline echocardiogram will be obtained. Patient will receive supportive and symptomatic cares as required during his hospital course. Smoking cessation is advised and counseled briefly at the bedside. A nicotine replacement patch is available for the patient's use, if desired. Daily CBCs and metabolic profiles will be followed. 02/21/2019 Long review of the chart history and discussion with patient still in the ER. patient does not appear to be septic or toxic. Agree with above. WBCs 3 days ago were 9000 last night 7000 platelets are normal Electrolytes are grossly normal, drug screen is unconfirmed positive for opiate s, HIV negative flu AMB negative. Hep C positive. Other liver studies pending Echocardiogram pending Patient admitted to hospitalist that he is an IV drug user. We will wait for further labs continue IV Diflucan's and oral Levaquin 02/22/2019 Echocardiogram was discussed yesterday with the casket upholsterer and he felt it was suggested for endocarditis Patient was switched yesterday to vancomycin and gentamicin IV Have discussed this with attending who is going to contact cardiology Sunday and set up a PAPO Patient's labs remained stable, patient's vital signs are stable as well Patient appears to be negative for hepatitis A B and C 02/23/2019 Patient remains afebrile blood pressure remained stable O2 sat is 97% on room air White count still normal H&H stable, renal functions normal ,liver functions normal ,glucose normal Blood cultures negative x48 hours Echocardiogram reported in the chart, EF 70%, cannot entirely exclude a vegetation on the anterior mitral valve recommend PAPO Cannot entirely exclude a vegetation on the aortic valve leaflet recommend PAPO Trace amount of tricuspid regurgitation, mild pulmonary hypertension Plan to have PAPO performed this week Patient and his significant other who is in the room had a long discussion concerning IV drug usage, patient's past drug usage, dangers of a PICC line. She states he has not used any IV heroin in 5 weeks, even prior to that he only used IV drugs for 3 months. Patient states his only other substance abuse is marijuana and occasionally took Percocet Since significant other who had a baby 5 weeks ago was also a IV drug user but has stopped 2 months ago. Both individuals are involved in substance abuse clinics and on Suboxone. Both individuals get regular drug testing by the clinic. Patient was told of the dangers and potential life-threatening complications from IV drug use with a PICC line Patient understood the risk and would like to proceed with a PICC line for ease of continued IV antibiotics. Will be ordered tomorrow. Dr. Alan and I have also discussed the risk and benefits of PICC line in this patient. Dr. Alan has shared his concerns for patient's medical treatment and history of substance abuse. He feels that if patient is competent and willing to not use illegal IV substances that the medical benefits of a PICC line outway the risks. We also discussed patient's insomnia history. He is tried Ambien, melatonin, Benadryl, trazodone, Seroquel. None of these helped. He cannot take Elavil due to side effects. Even as a child patient had sleep disturbances. We will try Klonopin 1 mg nightly 02/24/2019 Patient is scheduled for a PAPO today with Dr. Valerio. Is being done because his regular echo was suggestive of vegetation on 2 heart valves. Based on these findings as to whether or not we proceed with a PICC line. I think it will still need to be done however his blood cultures are growing no organism x72 hours, he is afebrile, has a normal white count. His PAPO is negative for endocarditis I would probably discharge him with a 14- day full course of antibiotics. This can be discussed with the casket upholsterer. he is agreeable to doing whatever we say There is a history that patient had hepatitis C but his antibodies are negative for this Patient currently on day 4 of IV Diflucan's Day 3 of IV gentamicin and day 3 of IV vancomycin And is also currently on his Suboxone, showing no signs of withdrawal - Time Time Spent with patient: 25-34 minutes
[2019-02-24] MEDS: NICOTINE 14 MG/24 HR PATCH.TD24 TD SCH (11:08)
[2019-02-24] MEDS ORDERED: DIPHENHYDRAMINE HCL 50 MG/ML VIAL ONE (13:45)
[2019-02-24] MEDS ORDERED: ONDANSETRON HCL INJ/PF 4 MG/2 ML SDV ONE (13:45)
[2019-02-24] MEDS ORDERED: EPINEPHRINE INJ 1 MG/10 ML DISP.SYRIN ONE (13:46)
[2019-02-24] MEDS ORDERED: FLUMAZENIL INJ 0.5 MG/5 ML VIAL ONE (13:46)
[2019-02-24] MEDS ORDERED: NALOXONE HCL INJ/PF 0.4 MG/1 ML SDV ONE (13:46)
[2019-02-24] MEDS ORDERED: GLUCAGON,HUMAN RECOMB 1 MG INJ ONE (13:46)
[2019-02-24] MEDS ORDERED: LIDOCAINE 2% JELLY 5 ML TUBE ONE (13:52)
[2019-02-24] MEDS: MIDAZOLAM 2 MG/2 ML INJ ONE ×4 (14:18→14:26)
[2019-02-24] MEDS: FENTANYL CITRATE INJ/PF 100 MCG/2 ML AMPUL ONE ×4 (14:18→14:28)
--- NOTE | 2019-02-24 15:14 | XCELERA REPORT ---
Study ID: [id number] [address] [id number] Transesophageal Echocardiogram Report Name: CYNTHIA OLSON Age: 23 yrs Gender: Male : 1995 Patient Status: Inpatient Patient Location: [facility]^A Study Date: 02/24/2019 02:38 PM History: Infective endocarditis IVDU Height: 69 in Weight: 162 lb BSA: 1.9 m2 Reason For Study: FUNGEMIA Ordering Physician: HEATHER GROSS Performed By: Traci Santos Interpretation Summary Left ventricular systolic function is normal. Ejection Fraction = >55%. The right ventricle is normal in size and function. There is trace mitral regurgitation. No hemodynamically significant valvular aortic stenosis. No aortic regurgitation is present. There is no pericardial effusion. There is no evidence to suggest infective endocarditis on this study Procedure A complete two-dimensional transesophageal echocardiogram was performed (2D, spectral and color flow Doppler). Informed consent for Transesophageal Echocardiogram, and use of a contrast agent as needed, was obtained prior to the procedure. The patient was brought to the Endoscopy unit in a fasting state. An intravenous line was placed. A topical anesthetic agent was used for oropharangeal anesthesia. A bite block was inserted. IV conscious sedation was administered using Midazolam 4 mg IV and Fentanyl 75 mcg IV. The patient's vital signs, including blood pressure, heart rate, pulse oximetry and cardiac rhythm were monitored thoughout the procedure. A multifrequency, mutliplane transesophageal echocardiographic endoscope was inserted and manipulated in the standard fashion to achieve multiplane views. The transesophageal probe was passed without difficulty. The usual views were obtained; basal, mid- esophageal, transgastric and aortic views. The patient tolerated the procedure well without evidence of orophangeal or esophageal trauma. Subsequent to all the images being obtained the probe was removed with out trauma. Left Ventricle The left ventricle is normal in size. The left ventricular apex is not well visualized. There is normal left ventricular wall thickness. Left ventricular systolic function is normal. Ejection Fraction = >55%. No regional wall motion abnormalities noted. Right Ventricle The right ventricle is normal in size and function. Atria The interatrial septum is intact with no evidence for an atrial septal defect. The left atrial size is normal. No thrombus is detected in the left atrial appendage. Right atrial size is normal. Mitral Valve The mitral valve is normal in structure and function. There is no vegetation seen on the mitral valve. There is no mitral valve stenosis. There is trace mitral regurgitation. Tricuspid Valve The tricuspid valve is normal in structure and function. There is no tricuspid valve vegetation. There is trace tricuspid regurgitation. Aortic Valve The aortic valve is normal in structure and function. The aortic valve is trileaflet. The aortic valve opens well. There is no aortic valvular vegetation. No hemodynamically significant valvular aortic stenosis. No aortic regurgitation is present. Pulmonic Valve The pulmonic valve is not well seen, but is grossly normal. There is no vegetation on the pulmonic valve. Arteries The aortic root is normal size. Pericardium There is no pericardial effusion. : HEATHER GROSS Anil
--- NOTE | 2019-02-24 15:59 | Progress Note ---
Provider Note Provider Note: PAPO no evidence of vegetation or endocarditis. Patient now becomes does patient need IV treatment for his fungus for 4 to 6 weeks, can this be by mouth. Cultures have been sent off to [facility] and will take up to 21 days for the results to identify the type of fungus and sensitivities Patient did have pneumonia diagnosed by CT scan on 02/18/2018. Patient has been on IV antibiotics since 21 February. 2 days prior to that when he was in the emergency room he was placed on p.o. Levaquin Patient is an IV drug user and will need a PICC line if IV medications are required at the time of discharge. Discharge is anticipated after infectious disease consult. PICC line is put on hold till we hear from infectious disease. Blood culture so far negative bacteria
[2019-02-24] MEDS: TRAMADOL HCL 50 MG TABLET PO PRN (19:41)
[2019-02-24] MEDS: CLONAZEPAM 1 MG TABLET PO SCH (21:21)
[2019-02-24] MEDS: GENTAMICIN SULFATE 120 MG in DEXTROSE 5%-WATER 100 ML IV SCH (21:21)
[2019-02-24 22:34] LABS: GENTAMICIN-TROUGH < 0.6 ug/mL (<2.0)
--- NOTE | 2019-02-25 00:27 | Progress Note ---
Provider Note Provider Note: Jimmy Griffiths 1995 Date of Service: 02/24/2019 [facility] Telephone Advice Consultation Chart reviewed. Patient is a 23-year-old man with history of intravenous drug use, last time was 1 month ago per notes. He has been on Suboxone. Patient was initially evaluated in the ED on 02/18 due to chest discomfort, fever, chills, tachycardia and hypotension. He had blood cultures drawn and also has a CTA of the chest. He was found with pneumonia by CT scan and he was sent home on levofloxacin. He was called to come back due to positive blood cultures for yeast. He was admitted on 02/20. He was complaining of weakness, fatigue. On admission he was afebrile and HD stable. No leukocytosis, stable liver and renal function. New blood cultures from 02/20 remain negative. Patient was started on fluconazole awaiting identification. [employer] identified Liv, but not albicans, parapsilosis, krusei, glabrata, tropicalis. Patient had a TTE t hat didn't properly see the mitral and aortic valve. A PAPO was done today, it didn't identify vegetations. ID consulted for recommendations. PMH: HCV IVDU PSH: Unknown Medications: Buprenorphine HCl/Naloxone HCl [Suboxone 8 mg-2 mg Sl Film] 1 film SL Q12 02/21/19 Allergies hydrocodone Adverse Reaction (Verified 02/20/19 15:29) Vital Signs: Temp Pulse Resp BP Pulse Ox 98.1 F 102 H 16 93/58 L 97 02/24/19 23:52 02/24/19 23:52 02/24/19 23:52 02/24/19 23:52 02/24/19 23:52 Intake & Output 02/23/19 02/24/19 02/25/19 06:59 06:59 06:59 Intake Total 1840 1440 Balance 1840 1440 Weight 73.6 kg Weight/Height Weight 73.6 kg Height 5 ft 9 in Laboratories: 02/24/19 04:37 02/24/19 04:37 MCV 84 fl (80-97) 02/24/19 04:37 MCH 28.6 pg (27.0-33.4) 02/24/19 04:37 MCHC 34.2 g/dL (32.0-36.0) 02/24/19 04:37 RDW 14.1 % (11.5-14.0) H 02/24/19 04:37 Seg Neutrophils % 51.0 % (42-78) 02/20/19 16:20 Chloride 101 mmol/L (98-107) 02/24/19 04:37 Carbon Dioxide 29 mmol/L (22-30) 02/24/19 04:37 Anion Gap 10 (5-19) 02/24/19 04:37 Est GFR ( Amer) > 60 (>60) 02/24/19 04:37 Glucose 91 mg/dL (75-110) 02/24/19 04:37 Calcium 9.4 mg/dL (8.4-10.2) 02/24/19 04:37 Total Bilirubin 0.4 mg/dL (0.2-1.3) 02/20/19 16:20 AST 46 U/L (17-59) 02/20/19 16:20 Alkaline Phosphatase 113 U/L (38-126) 02/20/19 16:20 Total Protein 7.7 g/dL (6.3-8.2) 02/20/19 16:20 Albumin 4.2 g/dL (3.5-5.0) 02/20/19 16:20 Urine Color YELLOW 02/20/19 16:20 Urine Appearance CLEAR 02/20/19 16:20 Urine pH 7.0 (5.0-9.0) 02/20/19 16:20 Ur Specific [place] 1.016 02/20/19 16:20 Urine Protein NEGATIVE mg/dL (NEGATIVE) 02/20/19 16:20 Urine Glucose (UA) NEGATIVE mg/dL (NEGATIVE) 02/20/19 16:20 Urine Ketones NEGATIVE mg/dL (NEGATIVE) 02/20/19 16:20 Urine Blood NEGATIVE (NEGATIVE) 02/20/19 16:20 Microbiology: Blood cultures 02/18 Yeast 02/20 NGTD Radiology: CTA 02/18/19 Left lower lobe and lingula opacities TTE 02/20/19 Unable to rule out vegetations in aortic valve and mitral valve PAPO 02/24/19 No valvular vegetations Assessment and recommendations: Patient evaluated due to fungemia in the setting of IVDU. Specimen has been sent to [facility] for identification and susceptibilities. Patient has been on fluconazole 400 mg IV daily, however in the setting of unknown ID and susceptibilities, micafungin or caspofungin is recommended as some species might be resistant to fluconazole. Patient's BP is lower today, should closely monitor. There is no evidence of endocarditis, therefore duration of therapy can be 2 weeks from negative blood cultures. He will need ophthalmology evaluation (it can be as outpatient) due to risk of endophthalmitis. If an echinocandin is not available, then should consider a higher dose of fluconazole (600-800 mg daily) as some might be dose dependent. Should follow blood cultures from 02/20 to document clearance of fungemia. Possible spp would be C dublinensis, C auris, C lusitanea. C auris is highly resistant, nosocomial, less likely the case as patient has been stable on fluconazole. Duration of therapy likely 2 weeks if cultures remain negative, treatment will depend on identification, but micafungin 100 mg IV recommended for now. Can continue levaquin for pneumonia. Please if updates or questions. Homa Soto MD [facility] Infectious Disease [phone]
[2019-02-25] MEDS: VANCOMYCIN HCL 1,000 MG in DEXTROSE 5%-WATER 250 ML IV SCH ×2 (02:26→10:15)
[2019-02-25] MEDS: HEPARIN SOD (PORCINE) 5,000 UNIT/ML 1 ML VIAL SUBCUT SCH ×3 (05:18→22:22)
[2019-02-25] MEDS: BUPRENORPHINE HCL 2 MG SUBLINGUAL TABLET SL SCH ×2 (07:00→17:03)
[2019-02-25] MEDS: DOCUSATE SODIUM 100 MG CAPSULE PO SCH ×2 (10:14→17:03)
[2019-02-25] MEDS: FAMOTIDINE 20 MG TABLET PO SCH ×2 (10:14→22:28)
[2019-02-25] MEDS: NICOTINE 14 MG/24 HR PATCH.TD24 TD SCH (10:15)
[2019-02-25] MEDS: LEVALBUTEROL HCL NEB 0.63 MG/3 ML AMPUL NEB PRN (11:05)
[2019-02-25 11:52] LABS: VANCOMYCIN,TROUGH 18.3 ug/mL (5.0-20.0)
[2019-02-25] MEDS ORDERED: NORMAL SALINE 10 ML SDV (AFTER EACH USE) IV PRN (16:00)
[2019-02-25] MEDS: TRAMADOL HCL 50 MG TABLET PO PRN ×2 (16:06→20:39)
[2019-02-25] MEDS: MAGNESIUM HYDROXIDE SUSP 30 ML UDCUP PO PRN (16:13)
[2019-02-25] MEDS: MICAFUNGIN SODIUM 100 MG in NORMAL SALINE 100 ML IV SCH (17:03)
--- NOTE | 2019-02-25 17:10 | RADIOLOGY REPORT (SQ) ---
EXAM DESCRIPTION: PICC INSERTION; FLUORO/CV PLACEMENT; U/S GUIDE FOR VASCULAR ACCESS COMPLETED DATE/TIME: 02/25/2019 3:18 pm REASON FOR STUDY: 4-6 weeks of IV antibiotics; IV ABX COMPARISON: 02/18/2019 FLUOROSCOPY TIME: 0.25 minutes 2 images saved to PACS. TECHNIQUE: Fluoroscopic and ultrasound guided PICC placement. LIMITATIONS: None. PROCEDURE: After written consent and assessment were obtained, the patient was brought into the fluo roscopy room and placed supine on the table. Ultrasound evaluation of potential access sites were per formed. After successfully identifying a patent left basilic vein, the left arm was prepped and drape d in a sterile fashion along with the ultrasound probe. The entry site was anesthetized with 1% lidoc gretel. A 21 gauge 7 cm needle was advanced through the skin and into the basilic vein under live ultra sound guidance. An ultrasound image was saved to PACS confirming access site. A .018 guide wire was then inserted through the needle and into the venous system. The needle was then removed and an 11 b lade scalpel was used to make a 1cm skin incision. A 5 fr peel-away sheath was advanced over the wir e and into the venous system. A measurement was then made using the existing wire and live fluoroscop ic guidance. The wire was then removed and trimmed. The PICC was advanced through the peel-away sheat h and into the venous system. The peel-away sheath was removed and the catheter was adhered to the pa tients arm with a stat lock. The catheter was then aspirated and flushed and a sterile bandage was pl aced over the access site. A fluoroscopic spot image was saved to PACS confirming the catheter tip w ithin the superior vena cava. IMPRESSION: SUCCESSFUL PLACEMENT OF A 5 FR DUAL LUMEN 41 CM PICC IN THE LEFT BASILIC VEIN. COMMENT: Patient medication list reviewed: Yes- Quality ID# [id number]:Eligible professional attests to doc umenting in the medical record they obtained, updated, or reviewed the patient's current medications. . Quality ID 145: Final reports for procedures using fluoroscopy that document radiation exposure gurjit aileen, or exposure time and number of fluorographic images (if radiation exposure indices are not avail able) Quality ID #76: The patient was prepped and draped using maximum sterile barrier technique including cap, mask, sterile gown, sterile gloves, a large sterile sheet, hand hygiene, and 2% Chlorhexidine fo r cutaneous antisepsis. When ultrasound is used, sterile ultrasound techniques are followed requiring sterile gel and sterile probes. TECHNICAL DOCUMENTATION: JOB ID: [id number] [employer]- All Rights Reserved rev-09/07 Reading location - IP/workstation name: [email or web address]
--- NOTE | 2019-02-25 17:21 | PDOC PROGRESS REPORT ---
Subjective Progress Note for:: 02/25/19 Subjective:: This is a 23-year-old male who was admitted due to recent blood cultures being positive for yeast. Patient was also found to have a left lower lobe pneumonia. Patient also had a PAPO done which ruled out vegetations. No acute event overnight. Patient denies chest pain or shortness of breath he does have mid back tenderness which he says has been chronically on and off. ID recommendations noted and appreciated. We will switch patient to micafungin. Patient admits to having an methamphetamine use but he incorporated bedside states that his last use was 2 months ago. They relay CPS was actually involved in their case due to them having a baby recently. Hence, he has decided to to rehab and is still recreational drug use. He has been following with Dr. Ponce and was started on Suboxone. He says that he has been determined to completely stop recreational drug use as he does not want to lose custody for his baby. Reason For Visit: PNEUMONIA,FUNGEMIA Physical Exam Vital Signs: Temp Pulse Resp BP Pulse Ox 98.2 F 102 H 18 113/66 98 02/25/19 13:14 02/25/19 13:14 02/25/19 13:14 02/25/19 13:14 02/25/19 13:14 Intake & Output 02/24/19 02/25/19 02/26/19 06:59 06:59 06:59 Intake Total 1840 2290 Balance 1840 2290 Weight 162 lb 4.163 oz 164 lb 7.437 oz General appearance: PRESENT: no acute distress, well-developed, well-nourished Head exam: PRESENT: atraumatic, normocephalic Eye exam: PRESENT: conjunctiva pink, EOMI, PERRLA. ABSENT: scleral icterus Ear exam: PRESENT: normal external ear exam Mouth exam: PRESENT: moist, tongue midline Neck exam: ABSENT: carotid bruit, JVD, lymphadenopathy, thyromegaly Respiratory exam: ABSENT: rales, rhonchi, wheezes Cardiovascular exam: PRESENT: RRR. ABSENT: diastolic murmur, rubs, systolic murmur Pulses: PRESENT: normal dorsalis pedis pul GI/Abdominal exam: PRESENT: normal bowel sounds, soft. ABSENT: distended, guard ing, mass, organolmegaly, rebound, tenderness Rectal exam: PRESENT: deferred Extremities exam: PRESENT: full ROM. ABSENT: calf tenderness, clubbing, pedal edema Neurological exam: PRESENT: alert, awake, oriented to person, oriented to place, oriented to time, oriented to situation, CN II-XII grossly intact. ABSENT: motor sensory deficit Results Laboratory Results: 02/24/19 04:37 02/24/19 04:37 02/25/19 10:07 C-Reactive Protein 16.2 H Assessment and Plan - Diagnosis (1) Fungemia Is this a current diagnosis for this admission?: Yes Plan: Blood cultures grew yeast 2/2 bottles. Samples were sent to [facility]. Appreciate ID recommendations. We will switch Diflucan to micafungin. Repeat blood cultures have been negative so far. Will proceed with PICC line placement and completion of antifungal for 2 weeks at home. (2) Pneumonia Qualifiers: Pneumonia type: due to unspecified organism Laterality: left Lung location: lower lobe of lung Qualified Code(s): J18.9 - Pneumonia, unspecified organism Is this a current diagnosis for this admission?: Yes Plan: DC vancomycin and switch to PO Levaquin. - Time Time Spent with patient: 25-34 minutes
[2019-02-25] MEDS: ONDANSETRON HCL INJ/PF 4 MG/2 ML SDV IV PRN (17:33)
[2019-02-25] MEDS: GENTAMICIN SULFATE 120 MG in DEXTROSE 5%-WATER 100 ML IV SCH (22:27)
[2019-02-25] MEDS: CLONAZEPAM 1 MG TABLET PO SCH (22:28)
[2019-02-25] MEDS: NORMAL SALINE 10 ML SDV (SCHEDULED) IV SCH (22:29)
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
[2019-02-26] MEDS: TRAMADOL HCL 50 MG TABLET PO PRN ×4 (01:53→21:05)
[2019-02-26] MEDS: HEPARIN SOD (PORCINE) 5,000 UNIT/ML 1 ML VIAL SUBCUT SCH ×3 (05:36→21:07)
[2019-02-26] MEDS: BUPRENORPHINE HCL 2 MG SUBLINGUAL TABLET SL SCH ×2 (05:37→17:18)
[2019-02-26] MEDS: NORMAL SALINE 10 ML SDV (SCHEDULED) IV SCH ×2 (09:51→21:18)
[2019-02-26] MEDS: FAMOTIDINE 20 MG TABLET PO SCH ×2 (09:51→21:05)
[2019-02-26] MEDS: LEVOFLOXACIN 750 MG TABLET PO SCH (09:51)
[2019-02-26] MEDS: DOCUSATE SODIUM 100 MG CAPSULE PO SCH ×2 (09:51→17:18)
[2019-02-26] MEDS: NICOTINE 14 MG/24 HR PATCH.TD24 TD SCH (09:52)
[2019-02-26] MEDS: LEVALBUTEROL HCL NEB 0.63 MG/3 ML AMPUL NEB PRN (10:54)
[2019-02-26] MEDS ORDERED: POLYETHYLENE GLYCOL 3350 POWDER 17 GM/1 PACKET PO PRN (13:13)
--- NOTE | 2019-02-26 16:12 | PDOC PROGRESS REPORT ---
Subjective Progress Note for:: 02/26/19 Subjective:: This is a 23-year-old male who was admitted due to recent blood cultures being positive for yeast. Patient was also found to have a left lower lobe pneumonia. Patient also had a PAPO done which ruled out vegetations. 02/25: Patient denies chest pain or shortness of breath he does have mid back tenderness which he says has been chronically on and off. ID recommendations noted and appreciated. We will switch patient to micafungin. Patient admits to having an methamphetamine use but he incorporated bedside states that his last use was 2 months ago. They relay CPS was actually involved in their case due to them having a baby recently. Hence, he has decided to to rehab and is still recreational drug use. He has been following with Dr. Ponce and was started on Suboxone. He says that he has been determined to completely stop recreational drug use as he does not want to lose custody for his baby. 02/26: No acute event overnight. Denies acute complaints. Results from [facility] came back and growth was identified as Liv guilliermondii. Discharge pl anning working on home health and home antibiotics. Awaiting final recommendations from ID now that species has been identified. Reason For Visit: PNEUMONIA,FUNGEMIA Physical Exam Vital Signs: Temp Pulse Resp BP Pulse Ox 97.6 F 94 18 117/74 99 02/26/19 12:00 02/26/19 12:00 02/26/19 12:00 02/26/19 12:00 02/26/19 12:00 Intake & Output 02/25/19 02/26/19 02/27/19 06:59 06:59 06:59 Intake Total 2290 2641 Balance 2290 2641 Weight 164 lb 7.437 oz 160 lb 11.472 oz General appearance: PRESENT: no acute distress, well-developed, well-nourished Head exam: PRESENT: atraumatic, normocephalic Eye exam: PRESENT: conjunctiva pink, EOMI, PERRLA. ABSENT: scleral icterus Ear exam: PRESENT: normal external ear exam Mouth exam: PRESENT: moist, tongue midline Neck exam: ABSENT: carotid bruit, JVD, lymphadenopathy, thyromegaly Respiratory exam: PRESENT: clear to auscultation boby. ABSENT: rales, rhonchi, wheezes Cardiovascular exam: PRESENT: RRR. ABSENT: diastolic murmur, rubs, systolic murmur Pulses: PRESENT: normal dorsalis pedis pul GI/Abdominal exam: PRESENT: normal bowel sounds, soft. ABSENT: distended, guarding, mass, organolmegaly, rebound, tenderness Rectal exam: PRESENT: deferred Extremities exam: PRESENT: full ROM. ABSENT: calf tenderness, clubbing, pedal edema Neurological exam: PRESENT: alert, awake, oriented to person, oriented to place, oriented to time, oriented to situation, CN II-XII grossly intact. ABSENT: motor sensory deficit Results Laboratory Results: 02/24/19 04:37 02/24/19 04:37 02/20/19 20:51 Blood Blood Culture - Final NO GROWTH IN 5 DAYS 02/20/19 20:35 Blood Blood Culture - Final NO GROWTH IN 5 DAYS Impressions: Guidance Fluoroscopy 02/25/19 00:00 IMPRESSION: SUCCESSFUL PLACEMENT OF A 5 FR DUAL LUMEN 41 CM PICC IN THE LEFT BASILIC VEIN. Interventional Vascular Procedure 02/25/19 00:00 IMPRESSION: SUCCESSFUL PLACEMENT OF A 5 FR DUAL LUMEN 41 CM PICC IN THE LEFT BASILIC VEIN. PICC Line Insertion 02/25/19 00:00 IMPRESSION: SUCCESSFUL PLACEMENT OF A 5 FR DUAL LUMEN 41 CM PICC IN THE LEFT BASILIC VEIN. Lumbar Spine MRI 02/25/19 14:23 IMPRESSION: 1. Small RIGHT paracentral disk herniation at T6-7. 2. No findings to suggest etiology of the patient's tenderness to palpation. Thoracic Spine MRI 02/25/19 14:23 IMPRESSION: 1. Small RIGHT paracentral disk herniation at T6-7. 2. No findings to suggest etiology of the patient's tenderness to palpation. Assessment and Plan - Diagnosis (1) Fungemia Is this a current diagnosis for this admission?: Yes Plan: Blood cultures grew yeast 2/2 bottles. Samples were sent to [facility]. Appreciate ID recommendations. We will switch Diflucan to micafungin. Repeat blood cultures have been negative so far. Will proceed with PICC line placement and completion of antifungal for 2 weeks at home. 02/26: Results from [facility] came back and growth was identified as Liv guilliermondii. Discharge planning working on home health and home antibiotics. Awaiting final recommendations from ID now that species has been identified. (2) Pneumonia Qualifiers: Pneumonia type: due to unspecified organism Laterality: left Lung location: lower lobe of lung Qualified Code(s): J18.9 - Pneumonia, unspecified organism Is this a current diagnosis for this admission?: Yes Plan: DCed vancomycin and switched to PO Levaquin. - Time Time Spent with patient: 25-34 minutes
--- NOTE | 2019-02-26 16:54 | RADIOLOGY REPORT (SQ) ---
EXAM DESCRIPTION: SHOULDER LEFT 2 OR MORE VIEWS COMPLETED DATE/TIME: 02/26/2019 4:46 pm REASON FOR STUDY: left shoulder pain COMPARISON: None. NUMBER OF VIEWS: Three view. TECHNIQUE: Internal rotation, external rotation, and Y view images acquired of the left shoulder. LIMITATIONS: None. FINDINGS: MINERALIZATION: Normal. BONES: No acute fracture. No worrisome bone lesions. No significant osteophytes. GLENOHUMERAL JOINT: No significant findings. ACROMIOCLAVICULAR JOINT: No large osteophytes. SOFT TISSUES: No calcifications. VISUALIZED RIBS, SPINE, AND LUNG: No other significant finding. OTHER: PICC line is in place. IMPRESSION: NEGATIVE STUDY OF THE LEFT SHOULDER. NO EXPLANATION FOR PAIN. TECHNICAL DOCUMENTATION: JOB ID: [id number] [employer]- All Rights Reserved Reading location - IP/workstation name: [email or web address]
[2019-02-26] MEDS: ONDANSETRON HCL INJ/PF 4 MG/2 ML SDV IV PRN (17:18)
[2019-02-26] MEDS: MICAFUNGIN SODIUM 100 MG in NORMAL SALINE 100 ML IV SCH (17:18)
[2019-02-26] MEDS: MAGNESIUM HYDROXIDE SUSP 30 ML UDCUP PO PRN (21:05)
[2019-02-26] MEDS: CLONAZEPAM 1 MG TABLET PO SCH (21:05)
[2019-02-26] MEDS: GENTAMICIN SULFATE 120 MG in DEXTROSE 5%-WATER 100 ML IV SCH (21:09)
[2019-02-27] MEDS: BUPRENORPHINE HCL 2 MG SUBLINGUAL TABLET SL SCH ×2 (05:57→17:52)
[2019-02-27] MEDS: TRAMADOL HCL 50 MG TABLET PO PRN ×3 (05:57→17:54)
[2019-02-27] MEDS: HEPARIN SOD (PORCINE) 5,000 UNIT/ML 1 ML VIAL SUBCUT SCH ×2 (05:58→13:00)
[2019-02-27] MEDS ORDERED: MAGNESIUM CITRATE 296 ML BOTTLE PO PRN (08:54)
--- NOTE | 2019-02-27 09:33 | Progress Note ---
Provider Note Provider Note: [facility] Telephone Advice Consultation Chart reviewed. Patient initially evaluated due to chest pain, shortness of breath. He was seen in the ED and found with pneumonia, sent home on levofloxacin. Called back due to yeast in blood cultures. New blood cultures on 02/20 negative to date. He was started on fluconazole, then transitioned to micafungin awaiting identification. Patient has been clinically improving but complained of chronic back pain and shoulder pain. He had his back scanned and also a shoulder X ray without significant abnormalities to cause pain, besides a herniated disk in the thoracic spine. No signs of infectious spondylitis. [facility] was able to identify the yeast as Liv guilliermondii. Patient continues doing well on micafungin, he is overall stable. Allergies: hydrocodone Adverse Reaction (Verified 02/20/19 15:29) Vital Signs: Temp Pulse Resp BP Pulse Ox 97.9 F 93 17 113/67 100 02/26/19 23:45 02/26/19 23:45 02/26/19 23:45 02/26/19 23:45 02/26/19 23:45 Intake & Output 02/26/19 02/27/19 02/28/19 06:59 06:59 06:59 Intake Total 2741 2336 Balance 2741 2336 Weight 72.9 kg 73.8 kg Weight/Height Weight 73.8 kg Height 5 ft 9 in Laboratories: 02/24/19 04:37 02/24/19 04:37 MCV 84 fl (80-97) 02/24/19 04:37 MCH 28.6 pg (27.0-33.4) 02/24/19 04:37 MCHC 34.2 g/dL (32.0-36.0) 02/24/19 04:37 RDW 14.1 % (11.5-14.0) H 02/24/19 04:37 Seg Neutrophils % 51.0 % (42-78) 02/20/19 16:20 Chloride 101 mmol/L (98-107) 02/24/19 04:37 Carbon Dioxide 29 mmol/L (22-30) 02/24/19 04:37 Anion Gap 10 (5-19) 02/24/19 04:37 Est GFR ( Amer) > 60 (>60) 02/24/19 04:37 Glucose 91 mg/dL (75-110) 02/24/19 04:37 Calcium 9.4 mg/dL (8.4-10.2) 02/24/19 04:37 Total Bilirubin 0.4 mg/dL (0.2-1.3) 02/20/19 16:20 AST 46 U/L (17-59) 02/20/19 16:20 Alkaline Phosphatase 113 U/L (38-126) 02/20/19 16:20 C-Reactive Protein 16.2 mg/L (<10.0) H 02/25/19 10:07 Total Protein 7.7 g/dL (6.3-8.2) 02/20/19 16:20 Albumin 4.2 g/dL (3.5-5.0) 02/20/19 16:20 Urine Color YELLOW 02/20/19 16:20 Urine Appearance CLEAR 02/20/19 16:20 Urine pH 7.0 (5.0-9.0) 02/20/19 16:20 Ur Specific Cody 1.016 02/20/19 16:20 Urine Protein NEGATIVE mg/dL (NEGATIVE) 02/20/19 16:20 Urine Glucose (UA) NEGATIVE mg/dL (NEGATIVE) 02/20/19 16:20 Urine Ketones NEGATIVE mg/dL (NEGATIVE) 02/20/19 16:20 Urine Blood NEGATIVE (NEGATIVE) 02/20/19 16:20 Microbiology: Blood cultures: 02/18 Yeast 02/20 No growth to date Radiology: Guidance Fluoroscopy 02/25/19 00:00 IMPRESSION: SUCCESSFUL PLACEMENT OF A 5 FR DUAL LUMEN 41 CM PICC IN THE LEFT BASILIC VEIN. Interventional Vascular Procedure 02/25/19 00:00 IMPRESSION: SUCCESSFUL PLACEMENT OF A 5 FR DUAL LUMEN 41 CM PICC IN THE LEFT BASILIC VEIN. PICC Line Insertion 02/25/19 00:00 IMPRESSION: SUCCESSFUL PLACEMENT OF A 5 FR DUAL LUMEN 41 CM PICC IN THE LEFT BASILIC VEIN. Lumbar Spine MRI 02/25/19 14:23 IMPRESSION: 1. Small RIGHT paracentral disk herniation at T6-7. 2. No findings to suggest etiology of the patient's tenderness to palpation. Thoracic Spine MRI 02/25/19 14:23 IMPRESSION: 1. Small RIGHT paracentral disk herniation at T6-7. 2. No findings to suggest etiology of the patient's tenderness to palpation. Shoulder X-Ray 02/26/19 15:34 IMPRESSION: NEGATIVE STUDY OF THE LEFT SHOULDER. NO EXPLANATION FOR PAIN. 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 He is afebrile and HD stable, no leukocytosis. He received few days of fluconazole and now on micafungin. Patient's PAPO was negative ruling out endocarditis and the fact that his repeat blood cultures were negative, a 2 weeks course of antifungals is recomended by the guidelines in the absence of metastatic infection. Even though his cultures have been negative, this means that he was transiently fungemic and if untreated, it can seed other areas of his body including the spine increasing the risk of fungal vertebral osteomyelitis, epidural abscess or discitis. It can also seed the heart valves increasing the risk of fungal endocarditis which has high morbidity and mortality with poor prognosis. It can also increase the risk of fungal endophthalmitis, therefore he will need ophthalmology evaluation as outpatient. His isolate is Liv guilliermondii which is a rare cause of invasive fungal infection and it is usually associated with onychomycosis, not sure if he has onychomycosis, but it would've increased the risk of getting this yeast through drug injection. In terms of therapy, C guilliermondii can be susceptible to fluconazole but there is increased resista nce to this drug. Unfortunately, susceptibility testing might take up to 2 weeks and patient wants to be discharged home soon. Treatment alternatives would be high dose fluconazole 800 mg po daily x 7 days vs voriconazole 400 mg q12 x 2 doses followed by 200 mg bid x 6 more days. Should monitor LFTs and QTc for both of them. These are the treatment options in order to complete therapy for fungemia with oral therapy as outpatient considering the risk of sending him home with a PICC line and risk of overdose or other line related complications. Please call if questions. Homa Soto MD [facility] Infectious Disease [phone]
[2019-02-27] MEDS ORDERED: LIDOCAINE 5% (700 MG) TRANSDERMAL ADH..PATCH TP ONE (09:47)
[2019-02-27] MEDS ORDERED: BISACODYL 10 MG SUPP.RECT PR ONE (09:47)
[2019-02-27] MEDS: NICOTINE 14 MG/24 HR PATCH.TD24 TD SCH (10:08)
[2019-02-27] MEDS: DOCUSATE SODIUM 100 MG CAPSULE PO SCH ×2 (10:16→17:52)
[2019-02-27] MEDS: FAMOTIDINE 20 MG TABLET PO SCH (10:16)
[2019-02-27] MEDS: LEVOFLOXACIN 750 MG TABLET PO SCH (10:16)
[2019-02-27] MEDS: NORMAL SALINE 10 ML SDV (SCHEDULED) IV SCH (10:17)
[2019-02-27 12:35] LABS: APPEARANCE,URINE CLEAR; BILIRUBIN,URINE NEGATIVE (NEGATIVE); COLOR,URINE YELLOW; GLUCOSE, URINE NEGATIVE (NEGATIVE); KETONES,URINE NEGATIVE (NEGATIVE); LEUKOCYTE ESTERASE,URINE NEGATIVE (NEGATIVE); NITRITE,URINE NEGATIVE (NEGATIVE); PROTEIN,URINE NEGATIVE (NEGATIVE); URINE SPECIFIC GRAVITY 1.013; UROBILINOGEN,URINE NEGATIVE mg/dL (<2.0)
[2019-02-27 14:58] LABS: ABSOLUTE EOSINOPHILS # (AUTO) 0.4 10^3/uL (0.0-0.6); ABSOLUTE LYMPHOCYTES (AUTO) 4.2 10^3/uL (0.5-4.7); ABSOLUTE MONOCYTES (AUTO) 0.6 10^3/uL (0.1-1.4); ABSOLUTE NEUT (AUTO) 2.4 10^3/uL (1.7-8.2); BASOPHILS % (AUTO) 0.4 % (0-2); EOSINOPHILS % (AUTO) 5.5 % (0-6); HEMATOCRIT 37.6 % (37.9-51.0); HEMOGLOBIN 13.1 g/dL (13.5-17.0); MEAN CORPUSCULAR HGB CONC 34.8 g/dL (32.0-36.0); MEAN CORPUSCULAR VOLUME 83 fl (80-97); MONOCYTES % (AUTO) 7.9 % (3-13); PLATELET COUNT 340 10^3/uL (150-450); RED CELL DISTRIBUTION WIDTH 14.8 % (11.5-14.0); SEGMENTED NEUTROPHILS % (AUTO) 31.2 % (42-78); TOTAL CELLS COUNTED % (AUTO) 100 %; WHITE BLOOD COUNT 7.6 10^3/uL (4.0-10.5)
[2019-02-27 15:17] LABS: ALBUMIN 3.9 g/dL (3.5-5.0); ALKALINE PHOSPHATASE 117 U/L (38-126); ANION GAP 10 (5-19); ASPARTATE AMINO TRANSFERASE 34 U/L (17-59); BILIRUBIN,DIRECT 0.2 mg/dL (0.0-0.4); BILIRUBIN,TOTAL 0.3 mg/dL (0.2-1.3); BLOOD UREA NITROGEN 13 mg/dL (7-20); CALCIUM 9.7 mg/dL (8.4-10.2); CARBON DIOXIDE 31 mmol/L (22-30); CHLORIDE 99 mmol/L (98-107); GLUCOSE 103 mg/dL (75-110); POTASSIUM 4.4 mmol/L (3.6-5.0)
[2019-02-27] MEDS: MICAFUNGIN SODIUM 100 MG in NORMAL SALINE 100 ML IV SCH (17:52)
[2019-02-27] MEDS: ONDANSETRON HCL INJ/PF 4 MG/2 ML SDV IV PRN (18:00)
[2019-02-27 19:49] VITALS: BP 128/67
--- NOTE | 2019-02-27 22:47 | EKG REPORT ---
SEVERITY:- NORMAL ECG - SINUS RHYTHM : Confirmed by: Matthew Sommer 27-Feb-2019 22:47:19
--- NOTE | 2019-02-28 18:00 | PDOC DISCHARGE SUMMARY ---
Impression - Admit/DC Date/PCP Admission Date/Primary Care Provider: 02/21/19 01:13 NAHID GONZALEZ Discharge Date: 02/27/19 - Discharge Diagnosis (1) Fungemia Is this a current diagnosis for this admission?: Yes (2) Pneumonia Is this a current diagnosis for this admission?: Yes - Additional Information Resuscitation Status: Full Code Referrals: [facility] [Outside] WANDY VIZCARRA PA [Primary Care Provider] - 03/06/19 9:00 am KASSY AGUIRRE MD [ACTIVE STAFF] - 03/05/19 10:00 am Prescriptions: Levofloxacin [Levaquin 750 mg Tablet] 750 mg PO DAILY 5 Days #5 tablet Lidocaine [Lidocaine Pain Relief] 1 each TP DAILY PRN #5 adh..patch PRN Reason: Micafungin Sodium [Mycamine Inj/Pf 100 mg Sdv] 100 mg IV QPM 7 Days #7 vial Home Medications: Buprenorphine HCl/Naloxone HCl [Suboxone 8 mg-2 mg Sl Film] 1 film SL Q12 02/21/19 Levofloxacin [Levaquin 750 mg Tablet] 750 mg PO DAILY 5 Days #5 tablet 02/27/19 Lidocaine [Lidocaine Pain Relief] 1 each TP DAILY PRN #5 adh..patch 02/27/19 Micafungin Sodium [Mycamine Inj/Pf 100 mg Sdv] 100 mg IV QPM 7 Days #7 vial 02/27/19 History of Present Illiness History of Present Illness: Admitting hospitalist's H&P: CYNTHIA OLSON is a 23 year old male who returned to the emergency room at their request due to positive blood cultures. Patient states he was notified by the [facility] emergency room that he had positive blood cultures and should return to the hospital. His blood cultures were positive for yeast in both bottles and cultures are not yet complete with final identification and sensitivities. He was also positive for hepatitis C. He admits that he is feeling better now though still fatigued and somewhat weak from the pneumonia that he was diagnosed as having 3 days ago. He denies other associated or accompanying signs and symptoms. He denies prior similar episodes. He has identified his IV drug use as a possible aggravating factor for his positive blood cultures but he has not yet identified any ameliorating factors for this problem. In the ER he was noted to have a normal hemogram and chemistry profile. A infectious disease physician from [place] was contacted by the ER provider and recommended that the patient be admitted and treated with IV fluconazole and continued oral or IV Levaquin until his culture results are finalized. Patient was subsequently admitted to hospital for further evaluation treatment. Hospital Course Hospital Course: This is a 23-year-old male who was admitted due to recent blood cultures being positive for yeast. Patient was also found to have a left lower lobe pneumonia. He was worked up for possible infective endocarditis. PAPO was pursued which ruled out vegetations. Infectious disease was also consulted. Results from [facility] came back and growth was identified as Liv guilliermondii. Repeat blood culture is negative. He will complete each his antifungal total of 2 weeks from last negative blood culture. He will be finishing the remaining 7 days of antifungal at the infusion center. Physical Exam Vital Signs: Temp Pulse Resp BP Pulse Ox 97.5 F 83 18 123/65 100 02/27/19 13:26 02/27/19 13:26 02/27/19 13:26 02/27/19 13:26 02/27/19 13:26 Intake & Output 02/26/19 02/27/19 02/28/19 06:59 06:59 06:59 Intake Total 2741 2336 921 Balance 2741 2336 921 Weight 160 lb 11.472 oz 162 lb 11.218 oz General appearance: PRESENT: no acute distress, well-developed, well-nourished Head exam: PRESENT: atraumatic, normocephalic Eye exam: PRESENT: conjunctiva pink, EOMI, PERRLA. ABSENT: scleral icterus Ear exam: PRESENT: normal external ear exam Mouth exam: PRESENT: moist, tongue midline Neck exam: ABSENT: carotid bruit, JVD, lymphadenopathy, thyromegaly Respiratory exam: PRESENT: clear to auscultation boby. ABSENT: rales, rhonchi, wheezes Cardiovascular exam: PRESENT: RRR. ABSENT: diastolic murmur, rubs, systolic murmur Pulses: PRESENT: normal dorsalis pedis pul GI/Abdominal exam: PRESENT: normal bowel sounds, soft. ABSENT: distended, guarding, mass, organolmegaly, rebound, tenderness Rectal exam: PRESENT: deferred Extremities exam: PRESENT: full ROM. ABSENT: calf tenderness, clubbing, pedal e hakeem Neurological exam: PRESENT: alert, awake, oriented to person, oriented to place, oriented to time, oriented to situation, CN II-XII grossly intact. ABSENT: motor sensory deficit Results Laboratory Results: WBC 7.6 10^3/uL (4.0-10.5) 02/27/19 12:45 RBC 4.50 10^6/uL (4.35-5.55) 02/27/19 12:45 Hgb 13.1 g/dL (13.5-17.0) L 02/27/19 12:45 Hct 37.6 % (37.9-51.0) L 02/27/19 12:45 MCV 83 fl (80-97) 02/27/19 12:45 MCH 29.0 pg (27.0-33.4) 02/27/19 12:45 MCHC 34.8 g/dL (32.0-36.0) 02/27/19 12:45 RDW 14.8 % (11.5-14.0) H 02/27/19 12:45 Plt Count 340 10^3/uL (150-450) 02/27/19 12:45 Lymph % (Auto) 55.0 % (13-45) H 02/27/19 12:45 Cottle % (Auto) 7.9 % (3-13) 02/27/19 12:45 Eos % (Auto) 5.5 % (0-6) 02/27/19 12:45 Baso % (Auto) 0.4 % (0-2) 02/27/19 12:45 Absolute Neuts (auto) 2.4 10^3/uL (1.7-8.2) 02/27/19 12:45 Absolute Lymphs (auto) 4.2 10^3/uL (0.5-4.7) 02/27/19 12:45 Absolute Monos (auto) 0.6 10^3/uL (0.1-1.4) 02/27/19 12:45 Absolute Eos (auto) 0.4 10^3/uL (0.0-0.6) 02/27/19 12:45 Absolute Basos (auto) 0.0 10^3/uL (0.0-0.2) 02/27/19 12:45 Seg Neutrophils % 31.2 % (42-78) L 02/27/19 12:45 ESR 25 mm/hr (0-15) H 02/25/19 10:07 Sodium 140.1 mmol/L (137-145) 02/27/19 12:45 Potassium 4.4 mmol/L (3.6-5.0) 02/27/19 12:45 Chloride 99 mmol/L (98-107) 02/27/19 12:45 Carbon Dioxide 31 mmol/L (22-30) H 02/27/19 12:45 Anion Gap 10 (5-19) 02/27/19 12:45 BUN 13 mg/dL (7-20) 02/27/19 12:45 Creatinine 1.14 mg/dL (0.52-1.25) 02/27/19 12:45 Est GFR ( Amer) > 60 (>60) 02/27/19 12:45 Est GFR (MDRD) Non-Af > 60 (>60) 02/27/19 12:45 Glucose 103 mg/dL (75-110) 02/27/19 12:45 Calcium 9.7 mg/dL (8.4-10.2) 02/27/19 12:45 Total Bilirubin 0.3 mg/dL (0.2-1.3) 02/27/19 12:45 Direct Bilirubin 0.2 mg/dL (0.0-0.4) 02/27/19 12:45 Neonat Total Bilirubin Not Reportable 02/27/19 12:45 Neonat Direct Bilirubin Not Reportable 02/27/19 12:45 Neonat Indirect Bili Not Reportable 02/27/19 12:45 AST 34 U/L (17-59) 02/27/19 12:45 ALT 44 U/L (<50) 02/27/19 12:45 Alkaline Phosphatase 117 U/L (38-126) 02/27/19 12:45 C-Reactive Protein 16.2 mg/L (<10.0) H 02/25/19 10:07 Total Protein 7.0 g/dL (6.3-8.2) 02/27/19 12:45 Albumin 3.9 g/dL (3.5-5.0) 02/27/19 12:45 Urine Color YELLOW 02/27/19 11:37 Urine Appearance CLEAR 02/27/19 11:37 Urine pH 7.0 (5.0-9.0) 02/27/19 11:37 Ur Specific Rosman 1.013 02/27/19 11:37 Urine Protein NEGATIVE mg/dL (NEGATIVE) 02/27/19 11:37 Urine Glucose (UA) NEGATIVE mg/dL (NEGATIVE) 02/27/19 11:37 Urine Ketones NEGATIVE mg/dL (NEGATIVE) 02/27/19 11:37 Urine Blood NEGATIVE (NEGATIVE) 02/27/19 11:37 Urine Nitrite NEGATIVE (NEGATIVE) 02/27/19 11:37 Urine Nitrite (Reflex) NEGATIVE (NEGATIVE) 02/20/19 16:20 Urine Bilirubin NEGATIVE (NEGATIVE) 02/27/19 11:37 Urine Urobilinogen NEGATIVE mg/dL (<2.0) 02/27/19 11:37 Ur Leukocyte Esterase NEGATIVE (NEGATIVE) 02/27/19 11:37 Leukocyte Esterase Rfl NEGATIVE (NEGATIVE) 02/20/19 16:20 Urine WBC (Auto) 0 /HPF 02/27/19 11:37 Urine WBC (Reflex) 1 /HPF 02/20/19 16:20 Urine Mucus (Auto) RARE /LPF 02/27/19 11:37 Urine Ascorbic Acid NEGATIVE (NEGATIVE) 02/27/19 11:37 Time Trough Drawn 1007 02/25/19 10:07 Gentamicin Trough < 0.6 ug/mL (<2.0) 02/24/19 21:34 Vancomycin Trough 18.3 ug/mL (5.0-20.0) 02/25/19 10:07 Urine Opiates Screen UNCONFIRMED POSITIVE 02/20/19 16:20 Urine Methadone Screen NEGATIVE 02/20/19 16:20 Ur Barbiturates Screen NEGATIVE 02/20/19 16:20 Ur Phencyclidine Scrn NEGATIVE 02/20/19 16:20 Ur Amphetamines Screen NEGATIVE 02/20/19 16:20 U Benzodiazepines Scrn NEGATIVE 02/20/19 16:20 Urine Cocaine Screen NEGATIVE 02/20/19 16:20 U Marijuana (THC) Screen NEGATIVE 02/20/19 16:20 Hepatitis A IgM Ab Negative (Negative) 02/20/19 16:20 Hep Bs Antigen Negative (Negative) 02/20/19 16:20 Hep B Core IgM Ab Negative (Negative) 02/20/19 16:20 Hepatitis C Antibody <0.1 s/co ratio (0.0-0.9) 02/20/19 16:20 HIV 1&2 Antibody NEGATIVE (NEGATIVE) 02/20/19 16:20 Impressions: Guidance Fluoroscopy 02/25/19 00:00 IMPRESSION: SUCCESSFUL PLACEMENT OF A 5 FR DUAL LUMEN 41 CM PICC IN THE LEFT BASILIC VEIN. Interventional Vascular Procedure 02/25/19 00:00 IMPRESSION: SUCCESSFUL PLACEMENT OF A 5 FR DUAL LUMEN 41 CM PICC IN THE LEFT BASILIC VEIN. PICC Line Insertion 02/25/19 00:00 IMPRESSION: SUCCESSFUL PLACEMENT OF A 5 FR DUAL LUMEN 41 CM PICC IN THE LEFT BASILIC VEIN. Lumbar Spine MRI 02/25/19 14:23 IMPRESSION: 1. Small RIGHT paracentral disk herniation at T6-7. 2. No findings to suggest etiology of the patient's tenderness to palpation. Thoracic Spine MRI 02/25/19 14:23 IMPRESSION: 1. Small RIGHT paracentral disk herniation at T6-7. 2. No findings to suggest etiology of the patient's tenderness to palpation. Shoulder X-Ray 02/26/19 15:34 IMPRESSION: NEGATIVE STUDY OF THE LEFT SHOULDER. NO EXPLANATION FOR PAIN. Stroke Is this a Stroke Patient?: No Acute Heart Failure - Is this a Heart Failure Patient?: No
== END 2019-02-27 20:25 | disposition home health service (06) | DRG 867 ==
LOC: ER 15:18 → EH 02-21 01:13 → 4W 02-21 09:07 → 5 02-21 16:04
PROVIDERS: ADMIT Emergency Medicine; ATTEND Internal Medicine
PROC: B24BZZ4 Ultrasonography of Heart with Aorta, Transesophageal (ICD-10-PCS; principal; 2019-02-24 14:00)
PROC: 02HV33Z Insertion of Infusion Device into Superior Vena Cava, Percutaneous Approach (ICD-10-PCS; 2019-02-25)
PROC: 3E02340 Introduction of Influenza Vaccine into Muscle, Percutaneous Approach (ICD-10-PCS; 2019-02-27)
DX: B37.89 Other sites of candidiasis (principal); J18.1 Lobar pneumonia, unspecified organism; I27.20 Pulmonary hypertension, unspecified; M51.24 Other intervertebral disc displacement, thoracic region; B19.20 Unspecified viral hepatitis C without hepatic coma; I36.1 Nonrheumatic tricuspid (valve) insufficiency; G43.909 Migraine, unspecified, not intractable, without status migrainosus; G47.00 Insomnia, unspecified; F19.10 Other psychoactive substance abuse, uncomplicated; F12.10 Cannabis abuse, uncomplicated; M54.9 Dorsalgia, unspecified; M25.519 Pain in unspecified shoulder; G89.29 Other chronic pain; F17.210 Nicotine dependence, cigarettes, uncomplicated; Z23 Encounter for immunization; Z88.6 Allergy status to analgesic agent; Z71.6 Tobacco abuse counseling
CPT/HCPCS: 36415; 36569; 72157; 72158; 76937; 77001; 80048; 80053; 80074; 80170; 80202; 80307; 81001; 82565; 85025; 85027; 85652; 86140; 86701; 87040; 90686; 93005; 93010; 93306; 93312; 93325; 96365; 96366; 99285; A9576; J0171; J0571; J1200; J1450; J1580; J1610; J1642; J1644; J2248; J2250; J2300; J2310; J2405; J3010; J3370; J3490; J7050; J7060; J7614

== ENCOUNTER → 2019-03-13 | Outpatient (CLI) | payer MEDICAID ==
--- NOTE | 2019-03-13 14:43 | RADIOLOGY REPORT (SQ) ---
EXAM DESCRIPTION: CHEST 2 VIEWS COMPLETED DATE/TIME: 03/13/2019 1:25 pm REASON FOR STUDY: J18.9 PNEUMONIA, UNSPECIFIED ORGANISM COMPARISON: Chest films 02/18/2019, 06/03/2018 CT chest 02/18/2019 EXAM PARAMETERS: NUMBER OF VIEWS: two views TECHNIQUE: Digital Frontal and Lateral radiographic views of the chest acquired. RADIATION DOSE: NA LIMITATIONS: none FINDINGS: LUNGS AND PLEURA: No opacities, masses or pneumothorax. No pleural effusion. MEDIASTINUM AND HILAR STRUCTURES: No masses or contour abnormalities. HEART AND VASCULAR STRUCTURES: Heart normal size. No evidence for failure. BONES: No acute findings. HARDWARE: None in the chest. OTHER: No other significant finding. IMPRESSION: NO ACUTE RADIOGRAPHIC FINDING IN THE CHEST. TECHNICAL DOCUMENTATION: JOB ID: [id number] [employer]- All Rights Reserved Reading location - IP/workstation name: [email or web address]
== END ==
LOC: RAD 13:04
PROVIDERS: ATTEND Family Medicine
DX: J18.9 Pneumonia, unspecified organism (principal)
CPT/HCPCS: 71046

== ENCOUNTER 2019-04-06 18:42 | Emergency (ER) | payer MEDICAID ==
[2019-04-06] MEDS ORDERED: NORMAL SALINE 1000 ML 1,000 ML IV ONE ×2 (19:18→22:50)
[2019-04-06] MEDS ORDERED: ONDANSETRON HCL INJ/PF 4 MG/2 ML SDV IV ONE (19:18)
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
[2019-04-06 20:23] LABS: ABSOLUTE EOSINOPHILS # (AUTO) 0.2 10^3/uL (0.0-0.6); ABSOLUTE LYMPHOCYTES (AUTO) 2.8 10^3/uL (0.5-4.7); ABSOLUTE MONOCYTES (AUTO) 0.4 10^3/uL (0.1-1.4); ABSOLUTE NEUT (AUTO) 1.9 10^3/uL (1.7-8.2); BASOPHILS % (AUTO) 0.4 % (0-2); EOSINOPHILS % (AUTO) 4.5 % (0-6); HEMATOCRIT 41.8 % (37.9-51.0); HEMOGLOBIN 14.2 g/dL (13.5-17.0); LYMPHOCYTES % (AUTO) 51.8 % (13-45); MEAN CORPUSCULAR HGB CONC 33.9 g/dL (32.0-36.0); MEAN CORPUSCULAR VOLUME 86 fl (80-97); MONOCYTES % (AUTO) 7.9 % (3-13); PLATELET COUNT 252 10^3/uL (150-450); RED BLOOD COUNT 4.89 10^6/uL (4.35-5.55); RED CELL DISTRIBUTION WIDTH 16.6 % (11.5-14.0); SEGMENTED NEUTROPHILS % (AUTO) 35.4 % (42-78); TOTAL CELLS COUNTED % (AUTO) 100 %; WHITE BLOOD COUNT 5.4 10^3/uL (4.0-10.5)
--- NOTE | 2019-04-06 20:30 | RADIOLOGY REPORT (SQ) ---
XR CHEST 2 VIEWS EXAM DATE: 04/06/2019 7:17 PM SHEET TAKER HISTORY: Chest pain, fever, cough. COMPARISON: 03/13/2019 FINDINGS: Normal heart size without pulmonary edema. The lungs are clear. No pleural effusions or pneumothorax. IMPRESSION: No evidence of acute cardiopulmonary disease.
[2019-04-06 20:45] LABS: ALKALINE PHOSPHATASE 108 U/L (38-126); ANION GAP 11 (5-19); ASPARTATE AMINO TRANSFERASE 328 U/L (17-59); BILIRUBIN,DIRECT 0.2 mg/dL (0.0-0.4); BILIRUBIN,TOTAL 0.4 mg/dL (0.2-1.3); BLOOD UREA NITROGEN 8 mg/dL (7-20); CALCIUM 9.7 mg/dL (8.4-10.2); CARBON DIOXIDE 30 mmol/L (22-30); CHLORIDE 103 mmol/L (98-107); GLUCOSE 93 mg/dL (75-110); TOTAL PROTEIN 7.1 g/dL (6.3-8.2)
--- NOTE | 2019-04-06 20:59 | EKG REPORT ---
SEVERITY:- OTHERWISE NORMAL ECG - SINUS TACHYCARDIA : Confirmed by: Jonathan Elias MD 06-Apr-2019 20:58:40
[2019-04-06 21:06] LABS: A TYPE INFLUENZA AG NEGATIVE (NEGATIVE); B INFLUENZA AG NEGATIVE (NEGATIVE)
[2019-04-06 21:12] LABS: APPEARANCE,URINE CLEAR; BILIRUBIN,URINE NEGATIVE (NEGATIVE); COLOR,URINE YELLOW; GLUCOSE, URINE NEGATIVE (NEGATIVE); KETONES,URINE NEGATIVE (NEGATIVE); LEUKOCYTE ESTERASE,URINE NEGATIVE (NEGATIVE); NITRITE,URINE NEGATIVE (NEGATIVE); PROTEIN,URINE NEGATIVE (NEGATIVE)
[2019-04-06 21:34] LABS: URINE AMPHETAMINES SCREEN NEGATIVE; URINE BARBITURATES SCREEN NEGATIVE; URINE BENZODIAZEPINES SCREEN NEGATIVE; URINE COCAINE SCREEN NEGATIVE; URINE MARIJUANA (THC) SCREEN NEGATIVE; URINE METHADONE SCREEN NEGATIVE; URINE PHENCYCLIDINE SCREEN NEGATIVE
[2019-04-06] MEDS ORDERED: ONDANSETRON HCL INJ/PF 4 MG/2 ML SDV ONE (22:37)
[2019-04-06] MEDS ORDERED: DIAZEPAM 2 MG TABLET PO ONE (23:03)
[2019-04-06] MEDS ORDERED: LOPERAMIDE HCL 2 MG CAPSULE PO ONE (23:03)
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
[2019-04-07 00:58] VITALS: BP 115/81
== END 2019-04-07 00:58 | disposition home or self-care (01) ==
LOC: ER 18:42
DX: F11.23 Opioid dependence with withdrawal (principal); M79.10 Myalgia, unspecified site; R11.2 Nausea with vomiting, unspecified; R19.7 Diarrhea, unspecified; R50.9 Fever, unspecified; F17.200 Nicotine dependence, unspecified, uncomplicated; Z88.6 Allergy status to analgesic agent
CPT/HCPCS: 93005; 36415; 87040; 85025; 80053; 81001; 84484; 80307; 83605; 87804; 71046; 93010; J3490 ×2; J2405; J7030; 96361; 96374; 99284